=== PATIENT | female | born 1935 | race Caucasian/White ===

== ENCOUNTER 2018-06-08 12:59 | Inpatient (IN) | payer MEDICARE, BC ==
[2018-06-08] MEDS ORDERED: Albuterol/Ipratropium NEB.SOL* Albuterol 2.5 MG/Ipratropium 0.5 MG 3 ML INH ONE (13:20)
--- NOTE | 2018-06-08 13:41 | ED ---
Shortness of Breath - HPI Summary HPI Summary: This is amita Pinedo documenting for attending Jac Medina MD. This patient is an 82 year old F presenting to [facility] accompanied by her son with a chief complaint of SOB since this morning. Pt initially saw her doctor in [place] for URI Sx where he discovered she was very anemic and told her to go to the ER. Symptoms aggravated by ambulating. Patient reports weakness, general malaise, cough, sore throat, SOB, increased urinary frequency, rhinorrhea, and wheezing. Patient denies diarrhea, bloody stool, abd pain, edema in the LEs, or melena. PMHx COPD, HLD, frequent urination. SHx tobacco use. Pt states that she does not have her own inhaler. Pt has not been passing stool more than usual. - History of Current Complaint Chief Complaint: EDShortnessOfBreath Time Seen by Provider: 06/08/18 13:09 Hx Obtained From: Patient, Family/Telecine Operator - son Onset/Duration: Sudden Onset, Lasting Hours - this morning Current Severity: Moderate Associated Signs & Symptoms: Cough (Productive), Wheezing, Nasal Congestion - Allergy/Home Medications Allergies/Adverse Reactions: Allergies Allergy/AdvReac Type Severity Reaction Status Date / Time No Known Allergies Allergy Verified 06/08/18 13:05 Home Medications: Home Medications Aspirin EC TAB* [Ecotrin EC TAB*] 81 mg PO DAILY 06/08/18 [History Confirmed ] Atenolol TAB* [Tenormin TAB* 50 MG] 50 mg PO DAILY 06/08/18 [History Confirmed 06/08/18] Calcium Carbonate [Calcium] 500 mg PO DAILY 06/08/18 [History Confirmed 06/08/18 ] Cholecalciferol TAB* [Vitamin D TAB*] 2,000 units PO DAILY 06/08/18 [History Confirmed 06/08/18] DULoxetine DR CAP* [Cymbalta CAP*] 30 mg PO DAILY 06/08/18 [History Confirmed ] Dronabinol CAP* [Marinol CAP*] 5 mg PO BID 06/08/18 [History Confirmed 06/08/18] Hydrochlorothiazide TAB* [Hydrodiuril TAB*] 25 mg PO DAILY 06/08/18 [History Confirmed 06/08/18] Lisinopril TAB* [Prinivil TAB*] 40 mg PO DAILY 06/08/18 [History Confirmed 06/08] Magnesium Oxide TAB* [MagOx 400 TAB*] 400 mg PO BID 06/08/18 [History Confirmed 06/08/18] Multivitamins/Minerals TAB* [Theragran/minerals TAB*] 1 tab PO DAILY 06/08/18 [ History Confirmed 06/08/18] Naproxen Sodium [Aleve] 220 mg PO BID 06/08/18 [History Confirmed 06/08/18] Simvastatin (NF) [Zocor (NF)] 40 mg PO DAILY 06/08/18 [History Confirmed ] amLODIPine TAB* [Norvasc 5 mg TAB*] 5 mg PO DAILY 06/08/18 [History Confirmed ] PMH/Surg Hx/FS Hx/Imm Hx Cardiovascular History: Reports: Hx Hypertension - ON MEDICATION FOR, Hx Rheumatic Fever - A CHILD Respiratory History: Reports: Hx Chronic Obstructive Pulmonary Disease (COPD) Musculoskeletal History: Reports: Hx Arthritis Denies: Hx Osteoporosis Sensory History: Reports: Hx Contacts or Glasses - GLASSES Denies: Hx Hearing Aid Opthamlomology History: Reports: Hx Contacts or Glasses - GLASSES Psychiatric History: Reports: Hx Depression - ON MEDICATION FOR - Surgical History Surgery Procedure, Year, and Place: TONSILLECTOMY-AGE10. TUBAL LIGATION-1966. RIGHT CARPAL TUNNEL RELEASE- ~40 YEARS AGO. RIGHT SHOULDER AND RIGHT THUMB- ~ 25 YEARS AGO. TEETH EXTRACTION Hx Anesthesia Reactions: No Infectious Disease History: No Infectious Disease History: Denies: Traveled Outside the [place] in Last 30 Days - Family History Known Family History: Positive: Other - COPD - Social History Alcohol Use: Rare Substance Use Type: Reports: None Smoking Status (MU): Former Smoker Amount Used/How Often: 1 PPD X 60 YEARS Have You Smoked in the Last Year: No Review of Systems Negative: Fever Positive: Sore Throat, Nasal Discharge Positive: Shortness Of Breath, Cough, Other - wheezing Negative: Abdominal Pain, Diarrhea Positive: frequency. Negative: dysuria, hematuria Negative: Edema Positive: Weakness All Other Systems Reviewed And Are Negative: Yes Physical Exam - Summary Physical Exam Summary: General: No pain distress Skin: warm, pale, dry Head: normal Eyes: EOMI, JADEN ENT: normal Neck: supple, nontender Respiratory: CTA, breath sounds present. Rhonchi. Cough. Cardiovascular: RRR Abdomen: soft, nontender Bowel: stool sample obtained and is brown in color Musculoskeletal: normal, strength/ROM intact Neurological: sensory/motor intact, A&O x3 Psychological: affect/mood appropriate Triage Information Reviewed: Yes Vital Signs On Initial Exam: Initial Vitals Temp Pulse Resp BP Pulse Ox 97.5 F 74 24 122/57 97 06/08/18 13:03 06/08/18 13:03 06/08/18 13:03 06/08/18 13:03 06/08/18 13:03 Vital Signs Reviewed: Yes Diagnostics - Vital Signs Vital Signs Temp Pulse Resp BP Pulse Ox 06/08/18 13:03 97.5 F 74 24 122/57 97 - Laboratory Result Diagrams: 06/08/18 13:32 06/08/18 13:32 Lab Statement: Any lab studies that have been ordered have been reviewed, and results considered in the medical decision making process. - Radiology CXR Radiology Interpretation Completed By: Radiologist - Stigmata of obstructive lung disease. No acute pulmonary or cardiac process evident. ER Physician reviewed this report. - EKG 13:27 Cardiac Rate: NL - 74 bpm EKG Rhythm: Sinus Rhythm ST Segment: Normal Ectopy: None Course/Dx - Course Course Of Treatment: ADMIT HOSPITALIST - Diagnoses Provider Diagnoses: COPD exacerbation, Bronchitis, Hyponatremia - Physician Notifications Discussed Care of Patient With: Mando Toussaint - Discussed D Dimer, will look at CTA Time Discussed With Above Provider: 14:33 Instructed by Provider To: Admit As Inpatient Discharge - Sign-Out/Discharge Documenting (check all that apply): Patient Departure - Discharge Plan Condition: Stable Disposition: ADMITTED TO [facility] - Billing Disposition and Condition Condition: STABLE Disposition: Admitted to [facility]
[2018-06-08 13:42] LABS: Hematocrit 25 % (35-47); Hematocrit for Retic CNT 25 % (35-47); Hemoglobin 8.5 g/dl (12.0-16.0); Immature Retic Fraction 0.43; Mean Corpuscular HGB Conc 34 g/dl (31-36); Mean Corpuscular Hemoglobin 29 pg (27-31); Mean Corpuscular Volume 86 fL (80-97); Mean Platelet Volume 6.8 um3 (7.4-10.4); Platelet Count 422 10^3/ul (150-450); RBC Retic Count 2.91 10^6/ul (4.6-6.2); Red Blood Count 2.91 10^6/ul (4.00-5.40); Red Cell Distribution Width 14 % (10.5-15)
[2018-06-08 13:52] LABS: INR 1.09 (0.77-1.02)
[2018-06-08 14:00] LABS: EGFR Non-African American 34.8 (>60)
[2018-06-08] MEDS ORDERED: Azithromycin IV(*) 500 MG in NS 0.9% 250 ML* 250 ML IVPB ONE (14:21)
[2018-06-08] MEDS ORDERED: cefTRIAXone(*) 1 GM in NS 0.9% 50 ML* 50 ML IVPB ONE (14:21)
[2018-06-08] MEDS ORDERED: NS 0.9% 1000 ML* 3,000 ML IV ONE (14:22)
[2018-06-08 14:24] LABS: ABS Basophils 0 10^3/ul (0-0.2); ABS Eosinophils 0.1 10^3/ul (0-0.6); ABS Lymphocytes 0.7 10^3/ul (1.0-4.8); ABS Monocytes 1.9 10^3/ul (0-0.8); ABS Neutrophils 15.2 10^3/ul (1.5-7.7); ABS Nucleated RBC 0 10^3/ul; Eosinophil % 0.6 % (0-6); Lymphocyte % 4.2 % (25-47); Nucleated Red Blood Cells % 0
--- NOTE | 2018-06-08 14:49 | RAD ---
Indication: Cough and shortness of breath. Worse on exertion. History of COPD. Comparison: March 25, 2018 thoracic spine radiographs. Technique: Upright AP 1400 hours Report: Costochondral calcifications noted. Mild prominence of interstitial markings without change. No focal pulmonary lesion, compelling alveolar consolidation, pleural effusion, pneumothorax. Top normal heart size. Unremarkable central pulmonary vasculature. IMPRESSION: #. Stigmata of obstructive lung disease. No acute pulmonary or cardiac process evident.
[2018-06-08] MEDS ORDERED: Magnesium Sulfate 2 GM IV* 2 GM/50 ML BAG IVPB ONE (16:19)
[2018-06-08] MEDS ORDERED: Albuterol 2.5 MG/3 ML NEB.SOL* (0.083%) INH PRN (16:20)
[2018-06-08] MEDS ORDERED: Acetaminophen TAB* 325 MG PO PRN (16:20)
[2018-06-08] MEDS ORDERED: Ondansetron INJ* 2 MG/ML VIAL IV PRN (16:20)
[2018-06-08] MEDS ORDERED: Al Hydrox/Mg Hydrox/Simet LIQ* 30 ML UDC PO PRN (16:20)
[2018-06-08] MEDS ORDERED: Iodixanol* (CONTRAST) 320 MG/ML 100 ML SDV IV ONE (16:36)
[2018-06-08] MEDS ORDERED: Magnesium Sulfate IV 2 GM in NS 100 ML (Pharmacy Admixed) IV ONE (17:30)
--- NOTE | 2018-06-08 17:47 | RAD ---
INDICATION: Chest pain. Short of breath. Evaluate for pulmonary embolus. COMPARISON: Chest x-ray June 08, 2018 TECHNIQUE: Axial source images were obtained from the thoracic inlet to the hemidiaphragms following administration of [address] angiographic technique was utilized. Coronal and sagittal reconstructed images were acquired. CHEST FINDINGS: Neck/thyroid: The visualized neck to include the thyroid appear normal. Chest wall: There are no acute abnormalities of the bony thorax or chest wall. There is no supraclavicular, infraclavicular, or axillary lymphadenopathy. Lungs : There are no pulmonary parenchymal masses or infiltrates. There is peribronchial thickening in the lung bases with mild hypoventilation. There is mild coarsening of the pulmonary interstitium consistent with mild chronic change . Cardiomediastinal structures: There is no CT evidence of acute pulmonary embolic disease. The heart is normal in size. There is no pericardial effusion. There is no evidence of aortic aneurysm or dissection. There are mildly prominent hilar lymph nodes bilaterally. These measure up to 1.5 cm. There are confluent lymph nodes and subcarinal region which individually measure up to 1.5 cm The esophagus appears normal. Pleura : There are no pleural-based masses or effusions. Other: There is a small hiatal hernia. IMPRESSION: NO CT OF HIS OF ACUTE PULMONARY EMBOLIC DISEASE. MILD MEDIASTINAL ADENOPATHY. PERIBRONCHIAL THICKENING IN THE LUNG BASES
--- NOTE | 2018-06-08 18:41 | HP ---
CC: Dr. Hartmann * HISTORY AND PHYSICAL: DATE OF ADMISSION: 06/08/18 PROVIDER: Tasha Hinds NP PRIMARY CARE PROVIDER: Dr. Hartmann. ATTENDING PHYSICIAN WHILE IN THE HOSPITAL: Dr. Mando Toussaint * (dictated by Tasha Hinds NP). CHIEF COMPLAINT: 1. Shortness of breath. 2. Cough. 3. Sore throat. HISTORY OF PRESENT ILLNESS: Ms. Mcbride is an 82-year-old female patient with a past medical history significant for hypertension, hyperlipidemia, and COPD, who presents to the emergency room today with increased shortness of breath and sore throat, chills and low-grade fever this a.m. The patient reports that she woke up this morning with a sore throat and a progressively worsening cough x1 day. She reports that her cough is productive with clear light yellow secretions. She does report fever. She does report decreased appetite x2 days. She denies any chest pain or edema. She does report cough that has progressively worsened over the past 2 days. She denies any hemoptysis. She does report some shortness of breath. Denies any nausea or vomiting. She does report chronic intermittent diarrhea. Denies any abdominal pain. She does report dark brown stools. She denies any gross hematuria. She does report some mild pain with urination. She denies any focal weakness or sensory loss. Eyes: Denies any visual complaints. Denies any dysphagia. Denies any arthralgias or myalgias. Denies any rashes or lesions. She denies any depression or anxiety. Due to her increased cough and shortness of breath, the patient was brought to the emergency room for further evaluation. While in the emergency room, the patient was found to be anemic. Her H and H is 8.5 and 25, which is lower than her normal. Due to her leukocytosis, anemia , shortness of breath, cough and elevated D-dimer, we were asked to evaluate her for admission. PAST MEDICAL HISTORY: 1. Hypertension. 2. Hyperlipidemia. 3. COPD. PAST SURGICAL HISTORY: 1. Right carpal tunnel. 2. Right shoulder. 3. Right thumb 4. Tubal ligation. 5. Tonsillectomy. 6. Tooth extraction. MEDICATIONS: Home medications include: 1. Vitamin D. 2. Calcium. 3. Aleve. 4. Multivitamin. 5. Zocor 40 mg p.o. daily. 6. Magnesium oxide 400 mg p.o. daily. 7. Atenolol 50 mg p.o. daily. 8. Norvasc 5 mg p.o. daily. 9. Hydrochlorothiazide 25 mg p.o. daily. 10. Cymbalta 30 mg p.o. daily. 11. Aspirin 81 mg p.o. daily. 12. Lisinopril 40 mg p.o. daily. 13. Marinol cap 5 mg b.i.d. ALLERGIES: No known drug allergies. FAMILY HISTORY: No reported history of coronary artery disease, diabetes, or cancer within the family. SOCIAL HISTORY: The patient does smoke 2 cigars daily. She does report rare alcohol use and does use medical marijuana. She is retired. She lives with her daughter. Surrogate decision maker in the event she is unable to make her own decisions is her daughter, Elle Morataya. Her phone number is [phone]. She is a full code. REVIEW OF SYSTEMS: There was no documented fever. She does report decreased appetite x2 days. She denies any chest pain. Denies any edema. Denies any hemoptysis. She does report a cough that is productive with clear pale yellow secretions. She does report some shortness of breath. She denies any nausea or vomiting. She does report chronic diarrhea. She denies any black or tarry stools. She denies any melena. She does report suprapubic abdominal pain with palpation. She denies any gross hematuria. She does report mild pain with urination. She denies focal weakness or sensory loss. Denies any visual complaints. Denies any dysphagia. Denies any arthralgias or myalgias. Denies any rashes or lesions. She denies any psychosis or anxiety. PHYSICAL EXAMINATION GENERAL: At this time, Ms. Mcbride is an 82-year-old female. She appears nourished. She is sitting on the stretcher in the emergency room. She is pale. She does not have a harsh cough. VITAL SIGNS: Blood pressure 128/48, heart rate is 82, O2 saturation 92% on room air, temperature was 97.5. HEENT: Head is atraumatic, normocephalic. Eyes: EOMs are intact. Sclerae are anicteric. Conjunctivae are pale. Oral mucosa appears to be moist. There is mild oropharyngeal erythema. NECK: Supple. No cervical or submandibular adenopathy. LUNGS: With crackles in the bases bilaterally. There are no wheezes or rales. CARDIAC: S1, S2. Regular rate and rhythm. There are no murmurs, rubs, or gallops. ABDOMEN: Soft, obese, with suprapubic tenderness to palpation. Bowel sounds are present x4. EXTREMITIES: Pulses are +2 bilaterally. She is able to move all 4 extremities with 5/5 strength. NEUROLOGIC: She is awake, alert, and oriented x3. Tongue is midline. Speech is clear. There are no gross focal deficits. SKIN: Intact. DIAGNOSTIC STUDIES/LAB DATA: WBCs are 18.0, RBCs 2.91, hemoglobin 8.5, hematocrit was 25, platelet count 422. RBC retic count was 2.91, neutrophils were 84.3, lymphs were 4.2, monos 10.7, retic count calculated was 1.8, corrected retic count was 1.0, retic shift factor was 2.0, retic production index was 0.50, immature retic fraction was 0.43, mean retic volume was 99.3. INR was 1.0, APTT was 30.9. D-dimer was 1039. Sodium 124, potassium 4.8, chloride 87, carbon dioxide was 27, anion gap was 10, BUN was 24, creatinine 1.44, glucose was 132, lactic acid 1.4, calcium 9.4, magnesium was 1.8. Ferritin 155.9. ASTs were 18, ALTs were 14, alk phos was 92. CK was 2.1, troponin 0.01. C-reactive protein 197.90. BNP was 70. Albumin 3.4, globulin was 3.4, lipase was less than 10. Vitamin B12 was 888. TSH was 0.95. She did have a stool for occult that was negative for blood. She also does have a urinalysis that is currently pending. She had a chest x-ray. Radiologist's impression: Stigmata of obstructive lung disease. No acute pulmonary or cardiac process was evident. She had an electrocardiogram, which showed a sinus rhythm at a rate of 74. No ST changes. She does have a CT of the chest that is pending. ASSESSMENT AND PLAN: Ms. Mcbride is an 82-year-old female that presented to the emergency room with a complaint of shortness of breath, cough, and sore throat. We were asked to see and evaluate her due to her leukocytosis, shortness of breath, cough. She will be admitted under observation for: 1. Shortness of breath. I suspect that this is related to chronic obstructive pulmonary disease exacerbation/bronchitis. I will place her on azithromycin and ceftriaxone as the patient did have mild elevation in temperature at home today of 100.3. She does have an 18,000 white count and is meeting SIRS criteria with respiratory rate of 25, white count of 18,000. She does have 3000 cc of normal saline ordered for hydration in the emergency room. She did receive azithromycin and ceftriaxone in the emergency room. We will continue these antibiotics with her admission. I will continue albuterol nebulizers as needed for her shortness of breath and wheezing q.4 hours. I did on a procalcitonin level that is currently pending. The patient does have a productive cough with pale yellow sputum. I will send the sputum for culture. I will also add a urine for Legionella and S pneumoniae. She did have blood cultures done. 2. Leukocytosis. She does have an 18,000 white count. I suspect this could be related to her urinary tract infection as she does have suprapubic tenderness with palpation and mild pain with urination. She did have mild elevation in her temperature this morning of 100.3 at home. This also could be related to underlying pneumonia. We will treat her with ceftriaxone, which will cover urinary tract infection and azithromycin, which will cover any underlying pneumonia. I will continue to trend her CBC daily. We will repeat this in the a.m. 3. Anemia. We will continue to trend a CBC on her. She did have ferritin level drawn in the emergency room. I will add iron studies. She did have an occult stool in the emergency room, which was negative. 4. Elevated creatinine. I suspect that she has an elevated creatinine related to dehydration. We will give her hydration and repeat a BMP in the a.m. and continue to monitor her creatinine level. 5. Hyponatremia. I suspect again this is related probably to malnutrition as the patient has had decreased appetite and decreased p.o. intake at home. We will give her IV hydration and repeat a BMP in the a.m. for further evaluation of her hyponatremia. 6. Hypertension. She should continue on her Norvasc, atenolol, lisinopril, and hydrochlorothiazide as previously ordered at home. 7. Hyperlipidemia. She should continue on her Zocor 40 mg p.o. daily. 8. Elevated D-dimer. I will obtain a CTA of the chest to rule out pulmonary embolism as she does have a D-dimer of 1039. The patient denies any palpitations. She does report some shortness of breath. 9. Code status: She is a full code. 10. DVT prophylaxis: I will place her on heparin subcu and SCDs. 11. Disposition: She will be placed under observation. TIME SPENT: Time spent on this admission was approximately 60 minutes, greater than half of that time was spent with the patient obtaining my history and physical, the other half of the time was spent going over my plan of care and implementing my plan of care. I have discussed this with my attending, Dr. Mando Toussaint, and he is in agreement with my plan. TASHA HINDS, SKIP HOIST ENGINEER [id number]/[facility] #: [id number] JEANNA
[2018-06-08 18:43] LABS: Urine Appearance Cloudy; Urine Blood 2+ (Negative); Urine Color Yellow; Urine Ketones Negative (Negative); Urine Protein 1+(30 mg/dL) (Negative); Urine Red Blood Cell 2+(6-10/hpf) (Absent); Urine Urobilinogen Negative (Negative); Urine White Blood Cell 3+(>20/hpf) (Absent)
[2018-06-08] MEDS: Dronabinol CAP* 2.5 MG PO SCH (20:31)
[2018-06-08] MEDS: Heparin VIAL(*) 5000 UNITS/ML VIAL (FIVE THOUSAND) SUBCUT SCH (20:31)
[2018-06-08] MEDS: Magnesium Oxide TAB* 400 MG PO SCH (20:31)
[2018-06-08] MEDS: Benzonatate CAP* 100 MG PO PRN (21:49)
[2018-06-09] MEDS: guaiFENesin ER TAB 600 MG PO PRN (05:52)
[2018-06-09] MEDS: Heparin VIAL(*) 5000 UNITS/ML VIAL (FIVE THOUSAND) SUBCUT SCH ×3 (05:52→21:37)
[2018-06-09 06:10] LABS: ABS Basophils 0.1 10^3/ul (0-0.2); ABS Eosinophils 0.1 10^3/ul (0-0.6); ABS Lymphocytes 0.9 10^3/ul (1.0-4.8); ABS Monocytes 1.3 10^3/ul (0-0.8); ABS Neutrophils 11.6 10^3/ul (1.5-7.7); ABS Nucleated RBC 0 10^3/ul; Eosinophil % 0.9 % (0-6); Hematocrit 25 % (35-47); Hemoglobin 8.5 g/dl (12.0-16.0); Lymphocyte % 6.7 % (25-47); Mean Corpuscular HGB Conc 34 g/dl (31-36); Mean Corpuscular Hemoglobin 30 pg (27-31); Mean Corpuscular Volume 87 fL (80-97); Nucleated Red Blood Cells % 0; Platelet Count 397 10^3/ul (150-450); Red Blood Count 2.83 10^6/ul (4.00-5.40); Red Cell Distribution Width 14 % (10.5-15)
[2018-06-09 06:26] LABS: EGFR Non-African American 40.9 (>60)
[2018-06-09] MEDS: Atorvastatin* 20 MG TAB PO SCH (09:00)
[2018-06-09] MEDS: Atenolol TAB* 50 MG PO SCH (09:00)
[2018-06-09] MEDS: Cholecalciferol TAB* 1000 UNITS PO SCH (09:01)
[2018-06-09] MEDS: Magnesium Oxide TAB* 400 MG PO SCH ×2 (09:01→21:36)
[2018-06-09] MEDS: Hydrochlorothiazide TAB* 25 MG PO SCH (09:01)
[2018-06-09] MEDS: Lisinopril TAB* 10 MG PO SCH (09:01)
[2018-06-09] MEDS: Benzonatate CAP* 100 MG PO PRN (09:01)
[2018-06-09] MEDS: Calcium Carbonate TAB* 1250 MG (CALCIUM 500 MG) PO SCH (09:02)
[2018-06-09] MEDS: Dronabinol CAP* 2.5 MG PO SCH ×2 (09:02→21:36)
[2018-06-09] MEDS: DULoxetine DR CAP* 30 MG CAP.DR PO SCH (09:02)
[2018-06-09] MEDS: amLODIPine TAB* 5 MG PO SCH (09:02)
[2018-06-09] MEDS: Multivitamins/Minerals TAB PO SCH (09:02)
[2018-06-09] MEDS ORDERED: Albuterol/Ipratropium NEB.SOL* Albuterol 2.5 MG/Ipratropium 0.5 MG 3 ML INH PRN (10:35)
[2018-06-09] MEDS: methylPREDNISolone SOD 40 MG* 1 ML VIAL IV SCH (11:57)
[2018-06-09] MEDS: cefTRIAXone(*) 1 GM in NS 0.9% 50 ML* 50 ML IVPB SCH (14:11)
--- NOTE | 2018-06-09 14:33 | PN ---
Subjective Date of Service: 06/09/18 Interval History: Feels "awful" today. She complains of ongoing shortness of breath and productive cough. No fevers, no chest pain. She had not yet been out of bed when I saw her this morning. But she says she becomes more short of breath even with slight exertion in her bed. At home she is able to walk around her house with a walker. No sore throat, rhinorrhea, chest pain, nausea, headache. Family History: Unchanged from Admission Social History: Unchanged from Admission Past Medical History: Unchanged from Admission Objective Active Medications: Acetaminophen (Tylenol Tab*) 650 mg PO Q4H PRN PRN Reason: FEVER/PAIN Last Admin: 06/08/18 20:47 Dose: 650 mg Al Hydrox/Mg Hydrox/Simethicone (Maalox Plus*) 30 ml PO Q6H PRN PRN Reason: INDIGESTION Albuterol/Ipratropium (Duoneb (Albuterol 2.5 Mg/Ipratropium 0.5 Mg)) 1 neb INH Q4H PRN PRN Reason: SOB/WHEEZING Amlodipine Besylate (Norvasc Tab*) 5 mg PO DAILY [facility] Last Admin: 06/09/18 09:02 Dose: 5 mg Atenolol (Tenormin Tab*) 50 mg PO DAILY [facility] Last Admin: 06/09/18 09:00 Dose: 50 mg Atorvastatin Calcium (Lipitor*) 20 mg PO DAILY [facility] Last Admin: 06/09/18 09:00 Dose: 20 mg Benzonatate (Tessalon Cap*) 100 mg PO BID PRN PRN Reason: COUGH Last Admin: 06/09/18 09:01 Dose: 100 mg Calcium Carbonate (Calcium Carbonate Tab*) 1,250 mg PO DAILY [facility] Last Admin: 06/09/18 09:02 Dose: 1,250 mg Cholecalciferol (Vitamin D Tab*) 2,000 units PO DAILY [facility] Last Admin: 06/09/18 09:01 Dose: 2,000 units Dronabinol (Marinol Cap*) 5 mg PO BID [facility] Last Admin: 06/09/18 09:02 Dose: 5 mg Duloxetine HCl (Cymbalta Cap*) 30 mg PO DAILY [facility] Last Admin: 06/09/18 09:02 Dose: 30 mg Guaifenesin (Mucinex*) 600 mg PO BID PRN PRN Reason: COUGH Last Admin: 06/09/18 05:52 Dose: 600 mg Heparin Sodium (Porcine) (Heparin Vial(*)) 5,000 units SUBCUT Q8HR [facility] Last Admin: 06/09/18 14:11 Dose: 5,000 units Hydrochlorothiazide (Hydrodiuril Tab*) 25 mg PO DAILY [facility] Last Admin: 06/09/18 09:01 Dose: 25 mg Ceftriaxone Sodium 1 gm/ (Sodium Chloride) 50 mls @ 200 mls/hr IVPB Q24H [facility] Last Admin: 06/09/18 14:11 Dose: 200 mls/hr Azithromycin 500 mg/ Sodium (Chloride) 250 mls @ 250 mls/hr IVPB Q24H [facility] Lisinopril (Prinivil Tab*) 40 mg PO DAILY [facility] Last Admin: 06/09/18 09:01 Dose: 40 mg Magnesium Oxide (Magox 400 Tab*) 400 mg PO BID [facility] Last Admin: 06/09/18 09:01 Dose: 400 mg Methylprednisolone Sodium Succinate (Solu-Medrol 40 Mg) 40 mg IV Q12H [facility] Last Admin: 06/09/18 11:57 Dose: 40 mg Multivitamins/Minerals (Theragran/Minerals Tab*) 1 tab PO DAILY [facility] Last Admin: 06/09/18 09:02 Dose: 1 tab Nystatin (Nystatin Top Powder*) 1 applic TOPICAL BID [facility] Ondansetron HCl (Zofran Inj*) 4 mg IV Q4H PRN PRN Reason: NAUSEA/VOMITING Vital Signs - 8 hr 06/09/18 06/09/18 06/09/18 07:42 07:53 09:02 Temperature 98.0 F Pulse Rate 81 Respiratory 17 17 22 Rate Blood Pressure 141/40 (mmHg) O2 Sat by Pulse 97 Oximetry 06/09/18 06/09/18 11:14 12:01 Temperature 99.1 F Pulse Rate 78 Respiratory 16 24 Rate Blood Pressure 141/44 (mmHg) O2 Sat by Pulse 99 Oximetry Oxygen Devices in Use Now: Nasal Cannula Appearance: alert, sitting in bed, able to speak in full sentences until I ask her to sit up to listen to her lungs, at which point she becomes dyspneic Eyes: No Scleral Icterus Ears/Nose/Mouth/Throat: NL Teeth, Lips, Gums Neck: NL Appearance and Movements; NL JVP Respiratory: Symmetrical Chest Expansion and Respiratory Effort, - - decreased breath sounds, prolonged expiratory phase Cardiovascular: RRR, No Edema Abdominal: NL Sounds; No Tenderness; No Distention Lymphatic: No Cervical Adenopathy Extremities: No Edema, - - + CLUBBING Skin: No Rash or Ulcers Neurological: Alert and Oriented x 3 Result Diagrams: 06/09/18 05:27 06/09/18 05:27 Microbiology and Other Data: Microbiology 06/08/18 20:50 Gram Stain - Final Sputum Expectorated 06/08/18 18:20 Legionella Urinary Antigen - Final Urine Negative Legionella Antigen Streptococcus pneumoniae Ag Screen - Final Negative S. pneumo Antigen 06/08/18 14:51 Stool Occult Blood ([facility]) - Final Stool Assess/Plan/Problems-Billing Assessment: 82 yo female with history of suspected chronic bronchitis (has never had PFTs) admitted yesterday with shortness of breath and productive cough, thought to be in copd exacerbation. - Patient Problems (1) COPD exacerbation Current Visit: Yes Status: Acute Code(s): J44.1 - CHRONIC OBSTRUCTIVE PULMONARY DISEASE W (ACUTE) EXACERBATION SNOMED Code(s): 436769223 Comment: Likely related to a URI versus ongoing tobacco exposure CTA negative for PE or pneumonia or edema While she does not believe she has been formally diagnosed with COPD, she does report a chronic ongoing productive cough, and at this time both the cough and the sputum are increased from baseline I am starting solumedrol and adding duoneb to her regimen today I agree with treating empirically for bronchitis or pneumonia with ceftriaxone and the addition of azithromycin for atypical coverage check ambulatory pulse ox today needs to quit smoking follow up sputum culture (2) Leukocytosis Current Visit: Yes Status: Acute Code(s): D72.829 - ELEVATED WHITE BLOOD CELL COUNT, UNSPECIFIED SNOMED Code(s): 649398354 Comment: I suspect an occult pneumonia vs. bronchitis; abx as above Improving on this regimen (3) UTI (urinary tract infection) Current Visit: Yes Status: Acute Comment: continue ceftriaxone; culture pending (4) Hyponatremia Current Visit: Yes Status: Acute Code(s): E87.1 - HYPO-OSMOLALITY AND HYPONATREMIA SNOMED Code(s): 69385010 Comment: improving likely related to respiratory distress; daughter also cites poor diet that contains more snacks and junk food than nutritious meals (5) EUGENE (acute kidney injury) Current Visit: Yes Status: Acute Code(s): N17.9 - ACUTE KIDNEY FAILURE, UNSPECIFIED SNOMED Code(s): 61235024 Comment: improved after 2L IVF dc IVF (6) Ambulatory dysfunction Current Visit: Yes Status: Acute Code(s): R26.2 - DIFFICULTY IN WALKING, NOT ELSEWHERE CLASSIFIED SNOMED Code(s): 402921718 Comment: while Ms. Mcbride is confident in her ability to ambulate at home, her daughter, who lives with her, expresses exasperation with her mom's deconditioning. appreciate PT input and would suggest STR if PT recommends (7) Iron deficiency anemia Current Visit: Yes Status: Acute Code(s): D50.9 - IRON DEFICIENCY ANEMIA, UNSPECIFIED SNOMED Code(s): 98081839 Comment: Hgb is 8.5 from 12 four months ago FOBT is negative, however this may warrant c-scope or endoscopy but respiratory status needs improvement first start po iron, trend h&h no active bleeding
[2018-06-09] MEDS: Azithromycin IV(*) 500 MG in NS 0.9% 250 ML* 250 ML IVPB SCH (16:37)
[2018-06-09] MEDS: Nystatin TOP POWDER* 15 GM BTL TOPICAL SCH ×2 (16:40→21:59)
[2018-06-10] MEDS: methylPREDNISolone SOD 40 MG* 1 ML VIAL IV SCH ×2 (00:38→11:36)
[2018-06-10] MEDS: Heparin VIAL(*) 5000 UNITS/ML VIAL (FIVE THOUSAND) SUBCUT SCH ×3 (05:54→21:23)
[2018-06-10 07:17] LABS: Hematocrit 25 % (35-47); Hemoglobin 8.7 g/dl (12.0-16.0); Mean Corpuscular HGB Conc 34 g/dl (31-36); Mean Corpuscular Hemoglobin 30 pg (27-31); Mean Corpuscular Volume 87 fL (80-97); Platelet Count 428 10^3/ul (150-450); Red Blood Count 2.92 10^6/ul (4.00-5.40); Red Cell Distribution Width 14 % (10.5-15); White Blood Count 14.8 10^3/ul (3.5-10.8)
[2018-06-10] MEDS: Multivitamins/Minerals TAB PO SCH (08:54)
[2018-06-10] MEDS: Atorvastatin* 20 MG TAB PO SCH (08:54)
[2018-06-10] MEDS: amLODIPine TAB* 5 MG PO SCH (08:54)
[2018-06-10] MEDS: Lisinopril TAB* 10 MG PO SCH (08:55)
[2018-06-10] MEDS: Calcium Carbonate TAB* 1250 MG (CALCIUM 500 MG) PO SCH (08:55)
[2018-06-10] MEDS: DULoxetine DR CAP* 30 MG CAP.DR PO SCH (08:55)
[2018-06-10] MEDS: Dronabinol CAP* 2.5 MG PO SCH ×2 (08:55→21:22)
[2018-06-10] MEDS: Magnesium Oxide TAB* 400 MG PO SCH ×2 (08:55→21:22)
[2018-06-10] MEDS: Atenolol TAB* 50 MG PO SCH (08:55)
[2018-06-10] MEDS: Hydrochlorothiazide TAB* 25 MG PO SCH (08:55)
[2018-06-10] MEDS: Nystatin TOP POWDER* 15 GM BTL TOPICAL SCH ×2 (08:57→21:23)
[2018-06-10] MEDS: Cholecalciferol TAB* 1000 UNITS PO SCH (08:59)
--- NOTE | 2018-06-10 14:49 | PN ---
Subjective Date of Service: 06/10/18 Interval History: No overnight events. Feels "okay" today but still has a productive cough and scratchy throat and hoarseness. Worked with PT and walked a little further today. Her son is visiting from [place]. Family History: Unchanged from Admission Social History: Unchanged from Admission Past Medical History: Unchanged from Admission Objective Active Medications: Acetaminophen (Tylenol Tab*) 650 mg PO Q4H PRN PRN Reason: FEVER/PAIN Last Admin: 06/08/18 20:47 Dose: 650 mg Al Hydrox/Mg Hydrox/Simethicone (Maalox Plus*) 30 ml PO Q6H PRN PRN Reason: INDIGESTION Albuterol/Ipratropium (Duoneb (Albuterol 2.5 Mg/Ipratropium 0.5 Mg)) 1 neb INH Q4H PRN PRN Reason: SOB/WHEEZING Amlodipine Besylate (Norvasc Tab*) 5 mg PO DAILY [facility] Last Admin: 06/10/18 08:54 Dose: 5 mg Atenolol (Tenormin Tab*) 50 mg PO DAILY [facility] Last Admin: 06/10/18 08:55 Dose: 50 mg Atorvastatin Calcium (Lipitor*) 20 mg PO DAILY [facility] Last Admin: 06/10/18 08:54 Dose: 20 mg Benzonatate (Tessalon Cap*) 100 mg PO BID PRN PRN Reason: COUGH Last Admin: 06/09/18 09:01 Dose: 100 mg Calcium Carbonate (Calcium Carbonate Tab*) 1,250 mg PO DAILY [facility] Last Admin: 06/10/18 08:55 Dose: 1,250 mg Cholecalciferol (Vitamin D Tab*) 2,000 units PO DAILY [facility] Last Admin: 06/10/18 08:59 Dose: 2,000 units Dronabinol (Marinol Cap*) 5 mg PO BID [facility] Last Admin: 06/10/18 08:55 Dose: 5 mg Duloxetine HCl (Cymbalta Cap*) 30 mg PO DAILY [facility] Last Admin: 06/10/18 08:55 Dose: 30 mg Guaifenesin (Mucinex*) 600 mg PO BID PRN PRN Reason: COUGH Last Admin: 06/09/18 05:52 Dose: 600 mg Heparin Sodium (Porcine) (Heparin Vial(*)) 5,000 units SUBCUT Q8HR [facility] Last Admin: 06/10/18 05:54 Dose: 5,000 units Hydrochlorothiazide (Hydrodiuril Tab*) 25 mg PO DAILY [facility] Last Admin: 06/10/18 08:55 Dose: 25 mg Ceftriaxone Sodium 1 gm/ (Sodium Chloride) 50 mls @ 200 mls/hr IVPB Q24H [facility] Last Admin: 06/09/18 14:11 Dose: 200 mls/hr Azithromycin 500 mg/ Sodium (Chloride) 250 mls @ 250 mls/hr IVPB Q24H [facility] Last Admin: 06/09/18 16:37 Dose: 250 mls/hr Lisinopril (Prinivil Tab*) 40 mg PO DAILY [facility] Last Admin: 06/10/18 08:55 Dose: 40 mg Magnesium Oxide (Magox 400 Tab*) 400 mg PO BID [facility] Last Admin: 06/10/18 08:55 Dose: 400 mg Methylprednisolone Sodium Succinate (Solu-Medrol 40 Mg) 40 mg IV Q12H [facility] Last Admin: 06/10/18 11:36 Dose: 40 mg Multivitamins/Minerals (Theragran/Minerals Tab*) 1 tab PO DAILY [facility] Last Admin: 06/10/18 08:54 Dose: 1 tab Nystatin (Nystatin Top Powder*) 1 applic TOPICAL BID [facility] Last Admin: 06/10/18 08:57 Dose: 1 applic Ondansetron HCl (Zofran Inj*) 4 mg IV Q4H PRN PRN Reason: NAUSEA/VOMITING Vital Signs - 8 hr 06/10/18 06/10/18 06/10/18 07:49 08:00 08:55 Temperature 98.0 F Pulse Rate 80 Respiratory 17 18 22 Rate Blood Pressure 170/55 (mmHg) O2 Sat by Pulse 99 Oximetry 06/10/18 06/10/18 11:09 11:28 Temperature 97.6 F Pulse Rate 66 Respiratory 20 16 Rate Blood Pressure 133/55 (mmHg) O2 Sat by Pulse 100 Oximetry Oxygen Devices in Use Now: Nasal Cannula Appearance: alert, sitting up in the recliner, coughs frequently and becomes short of breath with slight movements Eyes: No Scleral Icterus Ears/Nose/Mouth/Throat: NL Teeth, Lips, Gums Neck: NL Appearance and Movements; NL JVP Respiratory: Symmetrical Chest Expansion and Respiratory Effort, - - scattered wheezing throughout Cardiovascular: NL Sounds; No Murmurs; No JVD, RRR, No Edema Abdominal: NL Sounds; No Tenderness; No Distention Lymphatic: No Cervical Adenopathy Extremities: No Edema Skin: No Rash or Ulcers Neurological: Alert and Oriented x 3 Result Diagrams: 06/10/18 06:54 06/10/18 06:54 Microbiology and Other Data: Microbiology 06/08/18 20:50 Gram Stain - Final Sputum Expectorated 06/08/18 18:20 Legionella Urinary Antigen - Final Urine Negative Legionella Antigen Streptococcus pneumoniae Ag Screen - Final Negative S. pneumo Antigen 06/08/18 14:51 Stool Occult Blood ([facility]) - Final Stool Assess/Plan/Problems-Billing Assessment: 82 yo female with history of suspected chronic bronchitis (has never had PFTs) admitted yesterday with shortness of breath and productive cough, thought to be in copd exacerbation. - Patient Problems (1) COPD exacerbation Current Visit: Yes Status: Acute Code(s): J44.1 - CHRONIC OBSTRUCTIVE PULMONARY DISEASE W (ACUTE) EXACERBATION SNOMED Code(s): 996994988 Comment: Likely related to a URI versus ongoing tobacco exposure CTA negative for PE or pneumonia or edema While she does not believe she has been formally diagnosed with COPD, she does report a chronic ongoing productive cough, and at this time both the cough and the sputum are increased from baseline I am starting solumedrol and adding duoneb to her regimen today needs to quit smoking sputum culture showed normal gopal (2) Leukocytosis Current Visit: Yes Status: Acute Code(s): D72.829 - ELEVATED WHITE BLOOD CELL COUNT, UNSPECIFIED SNOMED Code(s): 191786831 Comment: I suspect an occult pneumonia vs. bronchitis Improving on this regimen though now on steroids (3) UTI (urinary tract infection) Current Visit: Yes Status: Acute Comment: continue ceftriaxone; culture pending (4) Hyponatremia Current Visit: Yes Status: Acute Code(s): E87.1 - HYPO-OSMOLALITY AND HYPONATREMIA SNOMED Code(s): 81043750 Comment: improving likely related to respiratory distress; daughter also cites poor diet that contains more snacks and junk food than nutritious meals (5) EUGENE (acute kidney injury) Current Visit: Yes Status: Acute Code(s): N17.9 - ACUTE KIDNEY FAILURE, UNSPECIFIED SNOMED Code(s): 43865250 Comment: resolved after ivf (6) Ambulatory dysfunction Current Visit: Yes Status: Acute Code(s): R26.2 - DIFFICULTY IN WALKING, NOT ELSEWHERE CLASSIFIED SNOMED Code(s): 374656695 Comment: plan for STR, discussed with case management and Ms. Mcbride and her son (7) Iron deficiency anemia Current Visit: Yes Status: Acute Code(s): D50.9 - IRON DEFICIENCY ANEMIA, UNSPECIFIED SNOMED Code(s): 16295156 Comment: Hgb is 8.5 from 12 four months ago FOBT is negative, however this may warrant c-scope or endoscopy but respiratory status needs improvement first start po iron, trend h&h no active bleeding
[2018-06-10] MEDS: cefTRIAXone(*) 1 GM in NS 0.9% 50 ML* 50 ML IVPB SCH (15:28)
[2018-06-10] MEDS: Azithromycin IV(*) 500 MG in NS 0.9% 250 ML* 250 ML IVPB SCH (16:56)
[2018-06-11] MEDS: methylPREDNISolone SOD 40 MG* 1 ML VIAL IV SCH ×2 (01:23→12:03)
[2018-06-11] MEDS: Heparin VIAL(*) 5000 UNITS/ML VIAL (FIVE THOUSAND) SUBCUT SCH ×3 (05:53→20:05)
[2018-06-11] MEDS: Cholecalciferol TAB* 1000 UNITS PO SCH (08:48)
[2018-06-11] MEDS: Dronabinol CAP* 2.5 MG PO SCH ×2 (08:48→20:05)
[2018-06-11] MEDS: Atenolol TAB* 50 MG PO SCH (08:48)
[2018-06-11] MEDS: Calcium Carbonate TAB* 1250 MG (CALCIUM 500 MG) PO SCH (08:49)
[2018-06-11] MEDS: amLODIPine TAB* 5 MG PO SCH (08:49)
[2018-06-11] MEDS: DULoxetine DR CAP* 30 MG CAP.DR PO SCH (08:49)
[2018-06-11] MEDS: Multivitamins/Minerals TAB PO SCH (08:49)
[2018-06-11] MEDS: Atorvastatin* 20 MG TAB PO SCH (08:49)
[2018-06-11] MEDS: Nystatin TOP POWDER* 15 GM BTL TOPICAL SCH ×2 (08:49→20:15)
[2018-06-11] MEDS: Magnesium Oxide TAB* 400 MG PO SCH ×2 (08:49→20:05)
[2018-06-11] MEDS: Lisinopril TAB* 10 MG PO SCH (08:49)
[2018-06-11] MEDS: Hydrochlorothiazide TAB* 25 MG PO SCH (08:49)
--- NOTE | 2018-06-11 10:49 | RAD ---
HISTORY: cough COMPARISONS: June 08, 2018 VIEWS: 1: frontal portable view of the chest at 9:45 AM FINDINGS: LINES AND TUBES: None. CARDIOMEDIASTINAL SILHOUETTE: The cardiomediastinal silhouette is normal for portable technique. PLEURA: The costophrenic angles are sharp. No pleural abnormalities are noted. LUNG PARENCHYMA: There is patchy alveolar opacification lung bases bilaterally. ABDOMEN: The upper abdomen is clear. There is no subphrenic gas. BONES AND SOFT TISSUES: No bone or soft tissue abnormalities are noted. There is stable calcification of the left axilla. IMPRESSION: PATCHY BIBASILAR ATELECTASIS VERSUS EARLY CONSOLIDATION.
[2018-06-11] MEDS ORDERED: Azithromycin TAB* 250 MG PO ONE (15:23)
--- NOTE | 2018-06-11 15:23 | PN ---
Subjective Date of Service: 06/11/18 Interval History: Ms. Mcbride had an episode of choking during lunch today. She recovered quickly. When I saw her this morning she was feeling a little better but still with a cough and sputum. No chest pain, orthopnea, nausea, vomiting. Family History: Unchanged from Admission Social History: Unchanged from Admission Past Medical History: Unchanged from Admission Objective Active Medications: Acetaminophen (Tylenol Tab*) 650 mg PO Q4H PRN PRN Reason: FEVER/PAIN Last Admin: 06/08/18 20:47 Dose: 650 mg Al Hydrox/Mg Hydrox/Simethicone (Maalox Plus*) 30 ml PO Q6H PRN PRN Reason: INDIGESTION Albuterol/Ipratropium (Duoneb (Albuterol 2.5 Mg/Ipratropium 0.5 Mg)) 1 neb INH Q4H PRN PRN Reason: SOB/WHEEZING Amlodipine Besylate (Norvasc Tab*) 5 mg PO DAILY [facility] Last Admin: 06/11/18 08:49 Dose: 5 mg Atenolol (Tenormin Tab*) 50 mg PO DAILY [facility] Last Admin: 06/11/18 08:48 Dose: 50 mg Atorvastatin Calcium (Lipitor*) 20 mg PO DAILY [facility] Last Admin: 06/11/18 08:49 Dose: 20 mg Benzonatate (Tessalon Cap*) 100 mg PO BID PRN PRN Reason: COUGH Last Admin: 06/09/18 09:01 Dose: 100 mg Calcium Carbonate (Calcium Carbonate Tab*) 1,250 mg PO DAILY [facility] Last Admin: 06/11/18 08:49 Dose: 1,250 mg Cholecalciferol (Vitamin D Tab*) 2,000 units PO DAILY [facility] Last Admin: 06/11/18 08:48 Dose: 2,000 units Dronabinol (Marinol Cap*) 5 mg PO BID [facility] Last Admin: 06/11/18 08:48 Dose: 5 mg Duloxetine HCl (Cymbalta Cap*) 30 mg PO DAILY [facility] Last Admin: 06/11/18 08:49 Dose: 30 mg Guaifenesin (Mucinex*) 600 mg PO BID PRN PRN Reason: COUGH Last Admin: 06/09/18 05:52 Dose: 600 mg Heparin Sodium (Porcine) (Heparin Vial(*)) 5,000 units SUBCUT Q8HR [facility] Last Admin: 06/11/18 05:53 Dose: 5,000 units Hydrochlorothiazide (Hydrodiuril Tab*) 25 mg PO DAILY [facility] Last Admin: 06/11/18 08:49 Dose: 25 mg Ceftriaxone Sodium 1 gm/ (Sodium Chloride) 50 mls @ 200 mls/hr IVPB Q24H [facility] Last Admin: 06/10/18 15:28 Dose: 200 mls/hr Azithromycin 500 mg/ Sodium (Chloride) 250 mls @ 250 mls/hr IVPB Q24H [facility] Last Admin: 06/10/18 16:56 Dose: 250 mls/hr Lisinopril (Prinivil Tab*) 40 mg PO DAILY [facility] Last Admin: 06/11/18 08:49 Dose: 40 mg Magnesium Oxide (Magox 400 Tab*) 400 mg PO BID [facility] Last Admin: 06/11/18 08:49 Dose: 400 mg Methylprednisolone Sodium Succinate (Solu-Medrol 40 Mg) 40 mg IV Q12H [facility] Last Admin: 06/11/18 12:03 Dose: 40 mg Multivitamins/Minerals (Theragran/Minerals Tab*) 1 tab PO DAILY [facility] Last Admin: 06/11/18 08:49 Dose: 1 tab Nystatin (Nystatin Top Powder*) 1 applic TOPICAL BID [facility] Last Admin: 06/11/18 08:49 Dose: 1 applic Ondansetron HCl (Zofran Inj*) 4 mg IV Q4H PRN PRN Reason: NAUSEA/VOMITING Vital Signs - 8 hr 06/11/18 06/11/18 06/11/18 08:00 08:48 11:23 Temperature 98.3 F Pulse Rate 60 Respiratory 20 18 18 Rate Blood Pressure 130/36 (mmHg) O2 Sat by Pulse 98 Oximetry 06/11/18 12:02 Temperature Pulse Rate Respiratory 16 Rate Blood Pressure (mmHg) O2 Sat by Pulse Oximetry Oxygen Devices in Use Now: None Appearance: sitting up in chair, breathing comfortably Eyes: No Scleral Icterus Ears/Nose/Mouth/Throat: NL Teeth, Lips, Gums Neck: NL Appearance and Movements; NL JVP Respiratory: Symmetrical Chest Expansion and Respiratory Effort, Clear to Auscultation Cardiovascular: NL Sounds; No Murmurs; No JVD, RRR Abdominal: NL Sounds; No Tenderness; No Distention Lymphatic: No Cervical Adenopathy Extremities: No Edema Skin: No Rash or Ulcers Neurological: Alert and Oriented x 3, NL Muscle Strength and Tone Result Diagrams: 06/10/18 06:54 06/10/18 06:54 Microbiology and Other Data: Microbiology 06/08/18 20:50 Gram Stain - Final Sputum Expectorated 06/08/18 18:20 Legionella Urinary Antigen - Final Urine Negative Legionella Antigen Streptococcus pneumoniae Ag Screen - Final Negative S. pneumo Antigen 06/08/18 14:51 Stool Occult Blood ([facility]) - Final Stool Assess/Plan/Problems-Billing Assessment: 82 yo female with history of suspected chronic bronchitis (has never had PFTs) admitted yesterday with shortness of breath and productive cough, thought to be in copd exacerbation. - Patient Problems (1) COPD exacerbation Current Visit: Yes Status: Acute Code(s): J44.1 - CHRONIC OBSTRUCTIVE PULMONARY DISEASE W (ACUTE) EXACERBATION SNOMED Code(s): 921797934 Comment: Likely related to a URI versus ongoing tobacco exposure CTA negative for PE or pneumonia or edema While she does not believe she has been formally diagnosed with COPD, she does report a chronic ongoing productive cough, and at this time both the cough and the sputum are increased from baseline continue solumedrol, duoneb, and i will also add azithromycin for anti- inflammatory effect needs to quit smoking sputum culture showed normal gopal (2) Leukocytosis Current Visit: Yes Status: Acute Code(s): D72.829 - ELEVATED WHITE BLOOD CELL COUNT, UNSPECIFIED SNOMED Code(s): 886787897 Comment: present on admission before starting steroids, so I suspect an occult pneumonia vs. bronchitis repeat cxr today shows bibasilar atelectasis vs. early consolidation start azithromycin as above (3) UTI (urinary tract infection) Current Visit: Yes Status: Acute Comment: continue ceftriaxone (4) Hyponatremia Current Visit: Yes Status: Acute Code(s): E87.1 - HYPO-OSMOLALITY AND HYPONATREMIA SNOMED Code(s): 64781058 Comment: improving likely related to respiratory distress; daughter also cites poor diet that contains more snacks and junk food than nutritious meals (5) EUGENE (acute kidney injury) Current Visit: Yes Status: Acute Code(s): N17.9 - ACUTE KIDNEY FAILURE, UNSPECIFIED SNOMED Code(s): 99117792 Comment: resolved after ivf (6) Ambulatory dysfunction Current Visit: Yes Status: Acute Code(s): R26.2 - DIFFICULTY IN WALKING, NOT ELSEWHERE CLASSIFIED SNOMED Code(s): 342438121 Comment: plan for STR, awaiting bed (7) Iron deficiency anemia Current Visit: Yes Status: Acute Code(s): D50.9 - IRON DEFICIENCY ANEMIA, UNSPECIFIED SNOMED Code(s): 57788071 Comment: Hgb is 8.5 from 12 four months ago FOBT is negative, however this may warrant c-scope or endoscopy but respiratory status needs improvement first start po iron, trend h&h no active bleeding
[2018-06-11] MEDS: cefTRIAXone(*) 1 GM in NS 0.9% 50 ML* 50 ML IVPB SCH (16:09)
[2018-06-11] MEDS: Azithromycin IV(*) 500 MG in NS 0.9% 250 ML* 250 ML IVPB SCH (16:15)
[2018-06-11] MEDS: Benzonatate CAP* 100 MG PO PRN (20:04)
[2018-06-11] MEDS: guaiFENesin ER TAB 600 MG PO PRN (20:05)
[2018-06-12] MEDS: methylPREDNISolone SOD 40 MG* 1 ML VIAL IV SCH ×2 (01:10→12:09)
[2018-06-12] MEDS: Heparin VIAL(*) 5000 UNITS/ML VIAL (FIVE THOUSAND) SUBCUT SCH ×3 (05:33→21:08)
[2018-06-12] MEDS: Lisinopril TAB* 10 MG PO SCH (08:55)
[2018-06-12] MEDS: Multivitamins/Minerals TAB PO SCH (08:56)
[2018-06-12] MEDS: Atorvastatin* 20 MG TAB PO SCH (08:56)
[2018-06-12] MEDS: amLODIPine TAB* 5 MG PO SCH (08:57)
[2018-06-12] MEDS: Magnesium Oxide TAB* 400 MG PO SCH ×2 (08:57→21:08)
[2018-06-12] MEDS: Cholecalciferol TAB* 1000 UNITS PO SCH (08:58)
[2018-06-12] MEDS: Calcium Carbonate TAB* 1250 MG (CALCIUM 500 MG) PO SCH (08:59)
[2018-06-12] MEDS: Atenolol TAB* 50 MG PO SCH (08:59)
[2018-06-12] MEDS: DULoxetine DR CAP* 30 MG CAP.DR PO SCH (08:59)
[2018-06-12] MEDS ORDERED: Azithromycin TAB* 250 MG PO SCH (09:00)
[2018-06-12] MEDS: Hydrochlorothiazide TAB* 25 MG PO SCH (09:00)
[2018-06-12] MEDS: Dronabinol CAP* 2.5 MG PO SCH ×2 (09:00→21:12)
--- NOTE | 2018-06-12 11:15 | PN ---
Subjective Date of Service: 06/12/18 Interval History: Choked on her lunch yesterday. Says this doesn't happen to her usually; this was unusual. Feels her breathing is getting better. Less hoarse. No sputum. No fevers. Family History: Unchanged from Admission Social History: Unchanged from Admission Past Medical History: Unchanged from Admission Objective Active Medications: Acetaminophen (Tylenol Tab*) 650 mg PO Q4H PRN PRN Reason: FEVER/PAIN Last Admin: 06/08/18 20:47 Dose: 650 mg Al Hydrox/Mg Hydrox/Simethicone (Maalox Plus*) 30 ml PO Q6H PRN PRN Reason: INDIGESTION Albuterol/Ipratropium (Duoneb (Albuterol 2.5 Mg/Ipratropium 0.5 Mg)) 1 neb INH Q4H PRN PRN Reason: SOB/WHEEZING Amlodipine Besylate (Norvasc Tab*) 5 mg PO DAILY [facility] Last Admin: 06/12/18 08:57 Dose: 5 mg Atenolol (Tenormin Tab*) 50 mg PO DAILY [facility] Last Admin: 06/12/18 08:59 Dose: 50 mg Atorvastatin Calcium (Lipitor*) 20 mg PO DAILY [facility] Last Admin: 06/12/18 08:56 Dose: 20 mg Azithromycin (Zithromax Tab*) 250 mg PO DAILY [facility] Last Admin: 06/12/18 08:57 Dose: 250 mg Benzonatate (Tessalon Cap*) 100 mg PO BID PRN PRN Reason: COUGH Last Admin: 06/11/18 20:04 Dose: 100 mg Calcium Carbonate (Calcium Carbonate Tab*) 1,250 mg PO DAILY [facility] Last Admin: 06/12/18 08:59 Dose: 1,250 mg Cholecalciferol (Vitamin D Tab*) 2,000 units PO DAILY [facility] Last Admin: 06/12/18 08:58 Dose: 2,000 units Dronabinol (Marinol Cap*) 5 mg PO BID [facility] Last Admin: 06/12/18 09:00 Dose: 5 mg Duloxetine HCl (Cymbalta Cap*) 30 mg PO DAILY [facility] Last Admin: 06/12/18 08:59 Dose: 30 mg Guaifenesin (Mucinex*) 600 mg PO BID PRN PRN Reason: COUGH Last Admin: 06/11/18 20:05 Dose: 600 mg Heparin Sodium (Porcine) (Heparin Vial(*)) 5,000 units SUBCUT Q8HR [facility] Last Admin: 06/12/18 05:33 Dose: 5,000 units Hydrochlorothiazide (Hydrodiuril Tab*) 25 mg PO DAILY [facility] Last Admin: 06/11/18 08:49 Dose: 25 mg Ceftriaxone Sodium 1 gm/ (Sodium Chloride) 50 mls @ 200 mls/hr IVPB Q24H [facility] Last Admin: 06/11/18 16:09 Dose: 200 mls/hr Lisinopril (Prinivil Tab*) 40 mg PO DAILY [facility] Last Admin: 06/12/18 08:55 Dose: 40 mg Magnesium Oxide (Magox 400 Tab*) 400 mg PO BID [facility] Last Admin: 06/12/18 08:57 Dose: 400 mg Methylprednisolone Sodium Succinate (Solu-Medrol 40 Mg) 40 mg IV Q12H [facility] Last Admin: 06/12/18 01:10 Dose: 40 mg Multivitamins/Minerals (Theragran/Minerals Tab*) 1 tab PO DAILY [facility] Last Admin: 06/12/18 08:56 Dose: 1 tab Nystatin (Nystatin Top Powder*) 1 applic TOPICAL BID [facility] Last Admin: 06/11/18 20:15 Dose: 1 applic Vital Signs - 8 hr 06/12/18 06/12/18 06/12/18 03:35 06:13 06:39 Temperature 99.1 F 98.0 F Pulse Rate 69 77 72 Respiratory 18 20 Rate Blood Pressure 160/54 173/57 160/38 (mmHg) O2 Sat by Pulse 95 96 Oximetry 06/12/18 06/12/18 08:00 09:00 Temperature Pulse Rate Respiratory 16 16 Rate Blood Pressure (mmHg) O2 Sat by Pulse Oximetry Oxygen Devices in Use Now: None Appearance: alert, sitting up in chair watching tv Eyes: No Scleral Icterus Ears/Nose/Mouth/Throat: NL Teeth, Lips, Gums Neck: NL Appearance and Movements; NL JVP Respiratory: Symmetrical Chest Expansion and Respiratory Effort, Clear to Auscultation, - - barrel chest Cardiovascular: NL Sounds; No Murmurs; No JVD, RRR, No Edema Abdominal: NL Sounds; No Tenderness; No Distention Lymphatic: No Cervical Adenopathy Extremities: No Edema Skin: No Rash or Ulcers Neurological: Alert and Oriented x 3 Result Diagrams: 06/10/18 06:54 06/10/18 06:54 Microbiology and Other Data: Microbiology 06/08/18 20:50 Gram Stain - Final Sputum Expectorated 06/08/18 18:20 Legionella Urinary Antigen - Final Urine Negative Legionella Antigen Streptococcus pneumoniae Ag Screen - Final Negative S. pneumo Antigen 06/08/18 14:51 Stool Occult Blood (ALEXANDER) - Final Stool Assess/Plan/Problems-Billing Assessment: 82 yo female with history of suspected chronic bronchitis (has never had PFTs) admitted yesterday with shortness of breath and productive cough, thought to be in copd exacerbation. - Patient Problems (1) COPD exacerbation Current Visit: Yes Status: Acute Code(s): J44.1 - CHRONIC OBSTRUCTIVE PULMONARY DISEASE W (ACUTE) EXACERBATION SNOMED Code(s): 606764158 Comment: Likely related to ongoing tobacco use +/- pneumonia While she does not believe she has been formally diagnosed with COPD, she does report a chronic ongoing productive cough, and at this time both the cough and the sputum are increased from baseline continue solumedrol, duoneb, and azithromycin/ceftriaxone needs to quit smoking sputum culture showed normal gopal (2) UTI (urinary tract infection) Current Visit: Yes Status: Acute Comment: continue ceftriaxone (3) Hyponatremia Current Visit: Yes Status: Acute Code(s): E87.1 - HYPO-OSMOLALITY AND HYPONATREMIA SNOMED Code(s): 63373187 Comment: improving likely related to respiratory distress; daughter also cites poor diet that contains more snacks and junk food than nutritious meals (4) EUGENE (acute kidney injury) Current Visit: Yes Status: Acute Code(s): N17.9 - ACUTE KIDNEY FAILURE, UNSPECIFIED SNOMED Code(s): 43413941 Comment: resolved after ivf (5) Ambulatory dysfunction Current Visit: Yes Status: Acute Code(s): R26.2 - DIFFICULTY IN WALKING, NOT ELSEWHERE CLASSIFIED SNOMED Code(s): 175758123 Comment: plan for STR, awaiting bed (6) Iron deficiency anemia Current Visit: Yes Status: Acute Code(s): D50.9 - IRON DEFICIENCY ANEMIA, UNSPECIFIED SNOMED Code(s): 49082702 Comment: Hgb is 8.5 from 12 four months ago FOBT is negative, however this may warrant c-scope or endoscopy but respiratory status needs improvement first start po iron, trend h&h no active bleeding
[2018-06-12] MEDS: Nystatin TOP POWDER* 15 GM BTL TOPICAL SCH ×2 (13:13→21:12)
[2018-06-12] MEDS: predniSONE TAB* 50 MG PO SCH (14:01)
[2018-06-13] MEDS: Heparin VIAL(*) 5000 UNITS/ML VIAL (FIVE THOUSAND) SUBCUT SCH ×3 (06:08→21:14)
[2018-06-13] MEDS ORDERED: Levofloxacin TAB* 750 MG PO SCH ×2 (09:00)
[2018-06-13] MEDS: Multivitamins/Minerals TAB PO SCH (09:07)
[2018-06-13] MEDS: DULoxetine DR CAP* 30 MG CAP.DR PO SCH (09:07)
[2018-06-13] MEDS: Dronabinol CAP* 2.5 MG PO SCH ×2 (09:07→21:13)
[2018-06-13] MEDS: predniSONE TAB* 50 MG PO SCH (09:08)
[2018-06-13] MEDS: Magnesium Oxide TAB* 400 MG PO SCH ×2 (09:08→21:13)
[2018-06-13] MEDS: Atorvastatin* 20 MG TAB PO SCH (09:08)
[2018-06-13] MEDS: Nystatin TOP POWDER* 15 GM BTL TOPICAL SCH ×2 (09:08→21:14)
[2018-06-13] MEDS: Calcium Carbonate TAB* 1250 MG (CALCIUM 500 MG) PO SCH (09:08)
[2018-06-13] MEDS: Hydrochlorothiazide TAB* 25 MG PO SCH (09:08)
[2018-06-13] MEDS: Lisinopril TAB* 10 MG PO SCH (09:08)
[2018-06-13] MEDS: Cholecalciferol TAB* 1000 UNITS PO SCH (09:08)
[2018-06-13] MEDS: Atenolol TAB* 50 MG PO SCH (09:08)
[2018-06-13] MEDS: amLODIPine TAB* 5 MG PO SCH (09:08)
--- NOTE | 2018-06-13 10:05 | PN ---
Subjective Date of Service: 06/13/18 Interval History: Ms. Mcbride reports feeling very tired but otherwise feeling well. She denies chest pain, SOB, nausea, or abdominal pain. Family History: Unchanged from Admission Social History: Unchanged from Admission Past Medical History: Unchanged from Admission Objective Active Medications: Acetaminophen (Tylenol Tab*) 650 mg PO Q4H PRN Al Hydrox/Mg Hydrox/Simethicone (Maalox Plus*) 30 ml PO Q6H PRN Albuterol/Ipratropium (Duoneb (Albuterol 2.5 Mg/Ipratropium 0.5 Mg)) 1 neb INH Q4H PRN Amlodipine Besylate (Norvasc Tab*) 5 mg PO DAILY [facility] Atenolol (Tenormin Tab*) 50 mg PO DAILY [facility] Atorvastatin Calcium (Lipitor*) 20 mg PO DAILY [facility] Benzonatate (Tessalon Cap*) 100 mg PO BID PRN Calcium Carbonate (Calcium Carbonate Tab*) 1,250 mg PO DAILY [facility] Cholecalciferol (Vitamin D Tab*) 2,000 units PO DAILY [facility] Dronabinol (Marinol Cap*) 5 mg PO BID [facility] Duloxetine HCl (Cymbalta Cap*) 30 mg PO DAILY [facility] Guaifenesin (Mucinex*) 600 mg PO BID PRN Heparin Sodium (Porcine) (Heparin Vial(*)) 5,000 units SUBCUT Q8HR [facility] Hydrochlorothiazide (Hydrodiuril Tab*) 25 mg PO DAILY [facility] Levofloxacin (Levaquin Tab*) 750 mg PO EVERY OTHER DAY [facility] Lisinopril (Prinivil Tab*) 40 mg PO DAILY [facility] Magnesium Oxide (Magox 400 Tab*) 400 mg PO BID [facility] Multivitamins/Minerals (Theragran/Minerals Tab*) 1 tab PO DAILY [facility] Nystatin (Nystatin Top Powder*) 1 applic TOPICAL BID [facility] Prednisone (Deltasone Tab*) 50 mg PO DAILY [facility] Vital Signs: Temp Pulse Resp BP Pulse Ox 97.9 F 64 20 145/52 100 06/13/18 07:57 06/13/18 07:57 06/13/18 09:07 06/13/18 07:57 06/13/18 07:57 Oxygen Devices in Use Now: None Appearance: Female sitting up in chair in NAD Eyes: No Scleral Icterus Ears/Nose/Mouth/Throat: Mucous Membranes Moist Neck: Trachea Midline Respiratory: Symmetrical Chest Expansion and Respiratory Effort, Clear to Auscultation Cardiovascular: NL Sounds; No Murmurs; No JVD, No Edema Abdominal: NL Sounds; No Tenderness; No Distention Lymphatic: No Cervical Adenopathy Extremities: No Edema Skin: No Rash or Ulcers Neurological: Alert and Oriented x 3, NL Muscle Strength and Tone Nutrition: Taking PO's Result Diagrams: 06/10/18 06:54 06/10/18 06:54 Assess/Plan/Problems-Billing Assessment: Ms. Mcbride is an 82 yo female with history of suspected chronic bronchitis ( has never had PFTs) admitted yesterday with shortness of breath and productive cough, thought to be in COPD exacerbation. - Patient Problems (1) COPD exacerbation Comment: - Resolving, on room air. 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 While she does not believe she has been formally diagnosed with COPD, she does report a chronic ongoing productive cough. - Continue prednisone, duoneb, and complete course of azithromycin. - Smoking cessation encouraged (only smokes 1 cigarette per day) (2) Pneumonia Comment: - Leukocytosis on arrival (persistent, but now on steroids). CRP 190s. Afebrile. - No clear infiltrate on CT chest. - Complete course of azithromycin. (3) Diarrhea Comment: - Suspect due to antibiotics, plan to de-escalate down to azithromycin. - Start lactobacillus. (4) EUGENE (acute kidney injury) Comment: - Resolved with IVF. (5) UTI (urinary tract infection) Comment: - UA positive but urine culture with contaminant. Completed 4 days of ceftriaxone plus a day of levaquin. - Re-send UA now to verify treatment. (6) Iron deficiency anemia Comment: - Hgb is 8.5, was 12 four months ago, stable since arrival. - FOBT is negative, will need colonoscopy or endoscopy but respiratory status needs improvement first - Continue po iron. Stop home naproxen and aspirin, start omeprazole. (7) Chronic pain Comment: - Continue drabinol for chronic pain. (8) Hyponatremia Comment: - Stable, chronic, asymptomatic. - Stop hctz. (9) Ambulatory dysfunction Comment: - Plan for STR, awaiting bed (10) Hypertension Comment: - SBP 140-160s. - Continue atenolol and lisinopril, increase amlodipine. Stop hctz due to hyponatremia. (11) Hyperlipidemia Comment: - Continue atorvastatin. (12) DVT prophylaxis Comment: - Heparin SQ. (13) Full code status Comment: Status and Disposition: Inpatient, plan for STR.
[2018-06-13] MEDS: Lactobacillus Acidophilus* 1 TAB PO SCH (21:13)
[2018-06-14] MEDS ORDERED: Omeprazole CAP* 20 MG PO SCH (06:00)
[2018-06-14] MEDS: Heparin VIAL(*) 5000 UNITS/ML VIAL (FIVE THOUSAND) SUBCUT SCH ×2 (06:32→14:33)
--- NOTE | 2018-06-14 07:34 | PN ---
Subjective Date of Service: 06/14/18 Interval History: Ms. Mcbride reports feeling well today other than feeling weak and tired. She denies chest pain, SOB, nausea, or abdominal pain. She is agreeable to the plan for discharge for short term rehab before returning home with her daughter. Family History: Unchanged from Admission Social History: Unchanged from Admission Past Medical History: Unchanged from Admission Objective Active Medications: Acetaminophen (Tylenol Tab*) 650 mg PO Q4H PRN Al Hydrox/Mg Hydrox/Simethicone (Maalox Plus*) 30 ml PO Q6H PRN Albuterol/Ipratropium (Duoneb (Albuterol 2.5 Mg/Ipratropium 0.5 Mg)) 1 neb INH Q4H PRN Amlodipine Besylate (Norvasc Tab*) 10 mg PO DAILY [facility] Atenolol (Tenormin Tab*) 50 mg PO DAILY [facility] Atorvastatin Calcium (Lipitor*) 20 mg PO DAILY [facility] Azithromycin (Zithromax Tab*) 250 mg PO DAILY [facility] Benzonatate (Tessalon Cap*) 100 mg PO BID PRN Calcium Carbonate (Calcium Carbonate Tab*) 1,250 mg PO DAILY [facility] Cholecalciferol (Vitamin D Tab*) 2,000 units PO DAILY [facility] Dronabinol (Marinol Cap*) 5 mg PO BID [facility] Duloxetine HCl (Cymbalta Cap*) 30 mg PO DAILY [facility] Guaifenesin (Mucinex*) 600 mg PO BID PRN Heparin Sodium (Porcine) (Heparin Vial(*)) 5,000 units SUBCUT Q8HR [facility] Lactobacillus Rhamnosus (Lactobacillus Acidophilus*) 1 tab PO BID [facility] Lisinopril (Prinivil Tab*) 40 mg PO DAILY [facility] Magnesium Oxide (Magox 400 Tab*) 400 mg PO BID [facility] Multivitamins/Minerals (Theragran/Minerals Tab*) 1 tab PO DAILY [facility] Nystatin (Nystatin Top Powder*) 1 applic TOPICAL BID [facility] Omeprazole (Prilosec Cap*) 20 mg PO 0600 [facility] Prednisone (Deltasone Tab*) 50 mg PO DAILY [facility] Vital Signs: Temp Pulse Resp BP Pulse Ox 98.6 F 64 16 159/51 100 06/14/18 02:54 06/14/18 02:54 06/14/18 02:54 06/14/18 02:54 06/14/18 02:54 Oxygen Devices in Use Now: None Appearance: Female lying in bed in NAD Eyes: No Scleral Icterus Ears/Nose/Mouth/Throat: Mucous Membranes Moist Neck: Trachea Midline Respiratory: Symmetrical Chest Expansion and Respiratory Effort, Clear to Auscultation Cardiovascular: NL Sounds; No Murmurs; No JVD, No Edema Abdominal: NL Sounds; No Tenderness; No Distention Extremities: No Edema Skin: No Rash or Ulcers Neurological: Alert and Oriented x 3, NL Muscle Strength and Tone Nutrition: Taking PO's Result Diagrams: 06/14/18 09:24 06/14/18 07:40 Assess/Plan/Problems-Billing Assessment: Ms. Mcbride is an 82 yo female with history of suspected COPD (has never had PFTs) admitted yesterday with shortness of breath and productive cough, thought to be in COPD exacerbation with possible component of pneumonia. - Patient Problems (1) COPD exacerbation Comment: - Resolving, on room air. - meterman history of tobacco abuse. While she does not believe she has been formally diagnosed with COPD, she does report a chronic ongoing productive cough. - Taper prednisone, continue duoneb, and complete course of azithromycin. - Smoking cessation encouraged (smokes 1 cigarette per day). - Plan to d/c with dannie, collette and pulmonology follow up. (2) Pneumonia Comment: - Leukocytosis on arrival (persistent, but now on steroids). CRP 190s. Afebrile. - No clear infiltrate on CT chest. - Complete course of azithromycin. (3) Diarrhea Comment: - Resolving. Suspect due to antibiotics, plan to de-escalate down to azithromycin. - Continue lactobacillus. (4) Iron deficiency anemia Comment: - Hgb is 8.5, was 12 four months ago, stable since arrival. Now up to 9.8 today. - FOBT is negative, will need colonoscopy or endoscopy but respiratory status needs improvement first - Continue po iron. Stop home naproxen and aspirin, start omeprazole. (5) EUGENE (acute kidney injury) Comment: - Resolved with IVF. (6) UTI (urinary tract infection) Comment: - UA positive but urine culture with contaminant. Completed 4 days of ceftriaxone plus a day of levaquin. (7) Chronic pain Comment: - Continue drabinol for chronic pain. (8) Hypertension Comment: - SBP 140-160s. - Continue atenolol and lisinopril, increase amlodipine. Stop hctz due to hyponatremia. (9) Hyponatremia Comment: - Stable, chronic, asymptomatic. - Stop hctz. (10) Hyperlipidemia Comment: - Continue atorvastatin. (11) Ambulatory dysfunction Comment: - Plan for STR, awaiting bed (12) DVT prophylaxis Comment: - Heparin SQ. (13) Full code status Comment: Status and Disposition: Inpatient, discharge to [facility].
[2018-06-14 08:39] LABS: EGFR Non-African American 49.5 (>60)
[2018-06-14] MEDS ORDERED: amLODIPine TAB* 5 MG PO SCH (09:00)
[2018-06-14] MEDS ORDERED: Azithromycin TAB* 250 MG PO SCH (09:00)
[2018-06-14] MEDS ORDERED: Ferrous Sulfate TAB* 325 MG PO SCH (09:00)
[2018-06-14] MEDS ORDERED: predniSONE TAB* 20 MG PO SCH (09:00)
[2018-06-14] MEDS: Lisinopril TAB* 10 MG PO SCH (09:47)
[2018-06-14] MEDS: Cholecalciferol TAB* 1000 UNITS PO SCH (09:48)
[2018-06-14] MEDS: Multivitamins/Minerals TAB PO SCH (09:50)
[2018-06-14] MEDS: Atorvastatin* 20 MG TAB PO SCH (09:51)
[2018-06-14] MEDS: Magnesium Oxide TAB* 400 MG PO SCH (09:52)
[2018-06-14] MEDS: Dronabinol CAP* 2.5 MG PO SCH (09:52)
[2018-06-14] MEDS: DULoxetine DR CAP* 30 MG CAP.DR PO SCH (09:53)
[2018-06-14] MEDS: Atenolol TAB* 50 MG PO SCH (09:53)
[2018-06-14] MEDS: Lactobacillus Acidophilus* 1 TAB PO SCH (09:53)
[2018-06-14] MEDS: Calcium Carbonate TAB* 1250 MG (CALCIUM 500 MG) PO SCH (09:53)
[2018-06-14] MEDS: Nystatin TOP POWDER* 15 GM BTL TOPICAL SCH (09:54)
[2018-06-14 10:00] LABS: Hematocrit 29 % (35-47); Hemoglobin 9.8 g/dl (12.0-16.0); Mean Corpuscular HGB Conc 34 g/dl (31-36); Mean Corpuscular Hemoglobin 29 pg (27-31); Mean Corpuscular Volume 87 fL (80-97); Platelet Count 464 10^3/ul (150-450); Red Blood Count 3.36 10^6/ul (4.00-5.40); Red Cell Distribution Width 14 % (10.5-15); White Blood Count 13.7 10^3/ul (3.5-10.8)
[2018-06-14 10:42] LABS: ABS Basophils 0.1 10^3/ul (0-0.2); ABS Eosinophils 0.1 10^3/ul (0-0.6); ABS Lymphocytes 3.2 10^3/ul (1.0-4.8); ABS Monocytes 1.7 10^3/ul (0-0.8); ABS Neutrophils 8.7 10^3/ul (1.5-7.7); ABS Nucleated RBC 0 10^3/ul; Eosinophil % 0.4 % (0-6); Nucleated Red Blood Cells % 0.1
--- NOTE | 2018-06-14 11:54 | DS ---
CC: Dr. Hartmann; [facility] * Please note that this Discharge Summary will serve as a History and Physical for admission to [facility] DATE OF ADMISSION: 06/09/18 DATE OF DISCHARGE: 06/14/18 ATTENDING PHYSICIAN: Dr. Celina George * (dictation provided by Leta Calzada NP ). PRIMARY DIAGNOSIS: 1. Chronic obstructive pulmonary disease exacerbation. 2. Pneumonia. 3. Iron deficiency anemia. 4. Hyponatremia. 5. Acute kidney injury. 6. Urinary tract infection. SECONDARY DIAGNOSES: 1. Hypertension. 2. Hyperlipidemia. 3. Chronic obstructive pulmonary disease. PAST SURGICAL HISTORY: 1. Right carpal tunnel surgery. 2. Right shoulder surgery. 3. Right thumb surgery. 4. Tubal ligation. 5. Tonsillectomy. 6. Tooth extraction. MEDICATIONS AT THE TIME OF DISCHARGE: 1. Cholecalciferol 2000 units p.o. daily. 2. Calcium carbonate 500 mg p.o. daily. 3. Multivitamin with mineral 1 tab p.o. daily. 4. Simvastatin 40 mg p.o. daily. 5. Magnesium oxide 400 mg p.o. b.i.d. 6. Atenolol 50 mg p.o. daily. 7. Duloxetine DR 30 mg p.o. daily. 8. Lisinopril 40 mg p.o. daily. 9. Dronabinol 5 mg p.o. b.i.d. 10. Prednisone 40 mg to taper. 11. Guaifenesin ER 600 mg p.o. b.i.d. p.r.n. 12. Amlodipine 10 mg daily (new dose). 13. Omeprazole 20 mg p.o. daily (new medication). 14. Nystatin powder topically b.i.d. 15. Lactobacillus 1 tab p.o. b.i.d. (new medication). 16. Ferrous sulfate 325 mg p.o. daily (new medication). 17. Benzonatate 100 mg p.o. b.i.d. p.r.n. 18. Albuterol p.r.n. 19. Tylenol 650 mg p.o. every 4 hours p.r.n. Hold hydrochlorothiazide, naproxen and aspirin. HOSPITAL COURSE: Ms. Mcbride is a n 82-year-old female with a mast medical history of suspected COPD, hypertension and hyperlipidemia who presented to the hospital on 06/08/18 with concern for shortness of breath, cough, and sore throat. Please see the dictated H&P from Tasha Hinds NP for complete details. In brief, the patient reported increased shortness of breath, sore throat, chills and low grade fever in the a.m. prior to arrival to the ED. She was seen at her primary care physician's office, Dr. Hartmann, who noted that she was anemic and suspected that perhaps her symptoms were attributed to this new anemia with an hemoglobin of 8.5. In the emergency room here workup confirmed leukocytosis, anemia, shortness of breath and an elevated D-dimer. She had a chest x-ray which showed stigmata of obstructive lung disease only. Because of the elevated D-dimer she did undergo chest thorax CTA which showed "no CT evidence of acute pulmonary embolic disease, mild mediastinal adenopathy and peribronchial thickening in the lung bases". She was hyponatremic with a sodium of 124. She showed iron deficiency with an iron less than 15 and iron saturation of 5. Her CRP was 197.90. Her troponin was normal. Ms. Mcbride was admitted to the hospital. She was treated for COPD exacerbation and likely atypical pneumonia with steroids, ceftriaxone and azithromycin. With this she has had good improvement of her shortness of breath and resolution of her hypoxia. She did have a repeat chest x-ray on 06/11/18 which showed patchy bibasilar atelectasis versus early consolidation. Despite this she has continued to progress well with treatment. Other issues noted during the hospitalization were hyponatremia which has been a chronic issue for her. I suspect this in part due to hydrochlorothiazide which I have discontinued. Her blood pressure has been running about 150 -160 with the discontinuation of hydrochlorothiazide. I have increased her amlodipine from 5 to 10 mg daily. However, she may need further adjustment of blood pressure medications going forward. Other issues identified here were the iron deficiency anemia. She had no report of blood per stool or dark tarry stool. The stool occult blood was negative. I question whether or not her anemia could be related to the use of naproxen which she says she uses frequently, as well as aspirin. I have asked her to discontinue these medications and to start iron supplementation, as well as omeprazole. Once her respiratory status has improved she can go for an outpatient endoscopy as needed. Patient states she has never had a colonoscopy in the past, so this would be a prudent plan. Without blood products the patient 's anemia is correcting on its own and on the day of discharge it is 9.8 for hemoglobin and hematocrit 29. She also had suspected urinary tract infection with positive UA, but the sample was contaminated and culture was not available. She received treatment for her pneumonia with ceftriaxone and azithromycin, which I would anticipate would treat UTI as well. Patient had mild acute kidney injury which resolved with IV fluids. After her illness, Ms. Mcbride remains weak and unable to care for herself independently at home. She has been deemed by physical therapy to need continued therapy and therefore is being transitioned to [facility] for short term rehab. DISPOSITION: To [facility]. DIET: Low fat, low salt. ACTIVITY: As tolerated. FOLLOW-UP PLANS: Please followup with Dr. Hartmann at the time of discharge from [facility]. Approximately 60 minutes were spent in the discharge of this patient with more than half that time spent with the patient at the bedside reviewing the events leading up and during this hospitalization, performing the physical examination , and reviewing the plan of care. LETA CALZADA NP [id number]/[facility] #: [id number] JEANNA
[2018-06-14 13:17] VITALS: BP 132/47
[2018-06-14 13:41] LABS: Urine Appearance Cloudy; Urine Blood 1+ (Negative); Urine Color Straw; Urine Ketones Negative (Negative); Urine Protein 2+(100 mg/dL) (Negative); Urine Red Blood Cell Trace(0-2/hpf) (Absent); Urine Specific Gravity 1.008 (1.010-1.030); Urine Urobilinogen Negative (Negative); Urine White Blood Cell Trace(0-5/hpf) (Absent)
== END 2018-06-14 14:30 | DRG 190 ==
LOC: ED 12:59 → MED 16:20 → OBSVTOIN 06-09 15:30
PROVIDERS: ADMIT Student in an Organized Health Care Education/Training Program; ATTEND Internal Medicine
DX: J44.1 Chronic obstructive pulmonary disease with (acute) exacerbation (principal); J18.9 Pneumonia, unspecified organism; E87.1 Hypo-osmolality and hyponatremia; N17.9 Acute kidney failure, unspecified; N39.0 Urinary tract infection, site not specified; D50.9 Iron deficiency anemia, unspecified; B95.2 Enterococcus as the cause of diseases classified elsewhere; I10 Essential (primary) hypertension; E78.5 Hyperlipidemia, unspecified; Z79.1 Long term (current) use of non-steroidal anti-inflammatories (NSAID); Z79.82 Long term (current) use of aspirin; Z79.899 Other long term (current) drug therapy; F17.290 Nicotine dependence, other tobacco product, uncomplicated
CPT/HCPCS: 36415; 71045; 71275; 80048; 80053; 81003; 81015; 82270; 82550; 82553; 82607; 82728; 82746; 83540; 83550; 83605; 83690; 83735; 83880; 84145; 84443; 84484; 85025; 85027; 85045; 85379; 85610; 85730; 86140; 86850; 86900; 86901; 87070; 87077; 87086; 87186; 87205; 87899; 93005; 99285; A9270-GY; G0378; G8978-GP-CI; G8978-GP-CJ; G8978-GP-CK; G8979-GP-CH; G8979-GP-CI; J0456; J0696; J1644; J2920; J3475; J7512; Q9967

== ENCOUNTER 2023-07-05 15:31 | Inpatient (IN) ==
[2023-07-05 17:11] LABS: ABS Eosinophils 0.1 10^3/uL (0.0-0.5); ABS Lymphocytes 2.1 10^3/uL (1.0-4.8); ABS Monocytes 1.3 10^3/uL (0.0-0.9); ABS Neutrophils 6.6 10^3/uL (1.5-7.6); ABS Nucleated RBC 0.01 10^3/ul; Eosinophil % 0.9 %; Hematocrit 23.8 % (35-45); Hemoglobin 7.6 g/dL (11.5-14.3); Lymphocyte % 21.3 %; Mean Corpuscular Hemoglobin 28.1 pg (27-33); Mean Platelet Volume 7.4 fL (7.5-11.2); Nucleated Red Blood Cells % 0.1 /100 WBC (0.0-0.4); Platelet Count 376 10^3/uL (150-450); Red Blood Count 2.71 10^6/uL (3.63-4.92); Red Cell Distribution Width 18.7 % (12-17); White Blood Count 10.1 10^3/uL (3.8-11.8)
[2023-07-05 17:30] LABS: Albumin 2.9 g/dL (3.2-5.2); C Reactive Protein 178.16 mg/L (<8.01); Calcium 8.3 mg/dL (8.6-10.3); Creatinine, Serum 4.68 mg/dL (0.51-0.95); Globulin 2.9 g/dL (2-4); Potassium 5.4 mmol/L (3.5-5.0); Total Bilirubin 0.4 mg/dL (0.2-1.0); Total Protein 5.8 g/dL (6.4-8.9); eGFR CKD-EPI 8.5 (>60)
[2023-07-05 17:39] LABS: Activated Partial Thrombo Time 33.6 seconds (26.0-38.0); INR 1.24 (0.88-1.18)
[2023-07-05] MEDS ORDERED: Piperacillin/Tazobac 3.375 BAG 3.375 GM/100 ML BAG IV ONE (17:46)
[2023-07-05] MEDS ORDERED: Ondansetron 4 mg VIAL 2 MG/ML 2 ml VIAL IV PRN (19:04)
[2023-07-05] MEDS ORDERED: Albuterol/Ipratropium NEB.SOL (2.5/0.5 MG) 3 ML NEB.SOLN INH PRN (19:53)
[2023-07-05] MEDS ORDERED: SODIUM ZIRCONIUM CYCLOSILICATE 10 GM PACKET PO ONE (19:56)
[2023-07-05] MEDS ORDERED: Lactated Ringers 1000 ml BAG 1,000 ML IV SCH (20:00)
[2023-07-05] MEDS ORDERED: HYDROmorphone 1 MG/1 ML SYRINGE IV ONE (20:12)
[2023-07-05] MEDS ORDERED: HYDROmorphone 1 MG/1 ML SYRINGE IV PRN (20:13)
[2023-07-05 20:52] LABS: Ferritin 548.3 ng/mL (11-307)
[2023-07-05] MEDS ORDERED: Vancomycin per Pharmacy 1 EA NOTE FOLLOW UP PRN (21:00)
[2023-07-05] MEDS ORDERED: fentaNYL PATCH 12 MCG/HR 1 PATCH TRANSDERM SCH (21:00)
[2023-07-05] MEDS ORDERED: Vancomycin 750 MG in NS 0.9% 250 ml 250 ML IVPB ONE (21:00)
[2023-07-05] MEDS ORDERED: Zosyn per Pharmacy NOTE FOLLOW UP SCH (21:00)
[2023-07-05] MEDS ORDERED: NS 0.9% 1000 ml BAG 1,000 ML IV ONE (22:49)
[2023-07-05] MEDS: Senna TAB 8.6 mg TAB PO SCH (22:57)
[2023-07-05] MEDS: Heparin 5000 UNITS/ML 1 mL VIAL SUBCUT SCH (23:09)
[2023-07-06] MEDS: ZOSYN 3.375 GM Q12H per EXTENDED INFUSION IV SCH ×2 (00:52→15:22)
[2023-07-06 05:43] LABS: ABS Basophils 0.1 10^3/uL (0.0-0.1); ABS Eosinophils 0.1 10^3/uL (0.0-0.5); ABS Lymphocytes 1.9 10^3/uL (1.0-4.8); ABS Monocytes 0.8 10^3/uL (0.0-0.9); ABS Neutrophils 3.8 10^3/uL (1.5-7.6); ABS Nucleated RBC 0.01 10^3/ul; Eosinophil % 1.4 %; Hematocrit 22.6 % (35-45); Hemoglobin 7.3 g/dL (11.5-14.3); Lymphocyte % 28.5 %; Mean Corpuscular Hemoglobin 28.6 pg (27-33); Mean Corpuscular Hgb Conc 32.3 g/dL (31-36); Mean Corpuscular Volume 88.7 fL (80-97); Mean Platelet Volume 7.2 fL (7.5-11.2); Nucleated Red Blood Cells % 0.2 /100 WBC (0.0-0.4); Platelet Count 379 10^3/uL (150-450); Red Blood Count 2.55 10^6/uL (3.63-4.92); Red Cell Distribution Width 18.8 % (12-17); White Blood Count 6.6 10^3/uL (3.8-11.8)
[2023-07-06 05:51] LABS: INR 1.24 (0.88-1.18)
[2023-07-06] MEDS ORDERED: HYDROmorphone 1 MG/1 ML SYRINGE IV SLOW PU ONE (05:52)
[2023-07-06 06:04] LABS: Albumin 2.7 g/dL (3.2-5.2); C Reactive Protein 186.74 mg/L (<8.01); Calcium 8.1 mg/dL (8.6-10.3); Creatinine, Serum 4.84 mg/dL (0.51-0.95); Globulin 2.6 g/dL (2-4); Phosphorus 4.2 mg/dL (2.5-5.0); Potassium 4.9 mmol/L (3.5-5.0); Total Bilirubin 0.4 mg/dL (0.2-1.0); Total Protein 5.3 g/dL (6.4-8.9); eGFR CKD-EPI 8.2 (>60)
[2023-07-06] MEDS: Heparin 5000 UNITS/ML 1 mL VIAL SUBCUT SCH ×3 (06:08→21:52)
[2023-07-06 06:23] LABS: PCO2 Arterial 47 mmHg (35-45); PO2 Arterial 79 mmHg (80-100)
[2023-07-06] MEDS ORDERED: fentaNYL Patch Check Q Shift NOTE FOLLOW UP SCH (07:00)
[2023-07-06] MEDS ORDERED: NS 0.9% 1000 ml BAG 100 ML IV PRN ×2 (07:36→07:40)
[2023-07-06] MEDS ORDERED: NS 0.9% 1000 ml BAG 200 ML IV PRN ×2 (07:36→07:40)
[2023-07-06] MEDS ORDERED: Albumin Human 25% 25 GM/100 ML BTL IV PRN (07:40)
[2023-07-06] MEDS ORDERED: Ferric Gluconate IV 250 MG in NS 0.9% 100 ml BAG 100 ML IVPB SCH (08:00)
[2023-07-06] MEDS ORDERED: Lorazepam PYXIS KEY PRN ×3 (10:28→20:15)
[2023-07-06] MEDS ORDERED: LORazepam 2 mg VIAL 1 ml IV PUSH ONE ×2 (10:28→12:09)
[2023-07-06] MEDS ORDERED: Vancomycin Trough Check NOTE FOLLOW UP ONE (10:30)
[2023-07-06] MEDS: Polyethylene Glycol 3350 17 GM PACKET PO SCH (11:05)
[2023-07-06] MEDS: Heparin 1,000 UNIT/ML 10 ml (10,000 UNITS) CATHLAB/DIALYSIS DIALYSIS PRN ×4 (11:05→15:20)
[2023-07-06] MEDS ORDERED: Vancomycin - DIALYSIS DOSING 1 EA NOTE FOLLOW UP SCH (14:00)
[2023-07-06 14:58] LABS: Hepatitis B Surface Antigen Nonreactive (Nonreactive)
[2023-07-06] MEDS ORDERED: Vancomycin 1000 MG in NS 0.9% 250 ML IVPB ONE (15:00)
[2023-07-06 15:16] LABS: Hepatitis B Surface Ab Not Immune (Immune)
[2023-07-06] MEDS: Ferric Gluconate IV 250 MG in NS 0.9% 250 ml 200 ML IVPB SCH (16:45)
[2023-07-06] MEDS: Pantoprazole VIAL 40 MG VIAL IV SCH (18:39)
[2023-07-06] MEDS ORDERED: LORazepam 2 mg VIAL 1 ml IV PUSH PRN (20:15)
[2023-07-06] MEDS: Senna TAB 8.6 mg TAB PO SCH (21:55)
[2023-07-07] MEDS: ZOSYN 3.375 GM Q12H per EXTENDED INFUSION IV SCH ×2 (00:39→15:15)
[2023-07-07] MEDS: Acetaminophen IV 1 GM/100ML 1,000 MG/100 ML BAG IV PRN (05:05)
[2023-07-07] MEDS ORDERED: HYDROmorphone 0.5 MG/0.5 ML SYRINGE IV SLOW PU ONE (05:19)
[2023-07-07] MEDS: Heparin 5000 UNITS/ML 1 mL VIAL SUBCUT SCH ×3 (06:06→22:09)
[2023-07-07] MEDS: Polyethylene Glycol 3350 17 GM PACKET PO SCH (07:38)
[2023-07-07] MEDS: Ferric Gluconate IV 250 MG in NS 0.9% 250 ml 200 ML IVPB SCH (07:38)
[2023-07-07 08:26] LABS: ABS Basophils 0.1 10^3/uL (0.0-0.1); ABS Lymphocytes 1.4 10^3/uL (1.0-4.8); ABS Monocytes 0.6 10^3/uL (0.0-0.9); ABS Neutrophils 4.4 10^3/uL (1.5-7.6); ABS Nucleated RBC 0.01 10^3/ul; Eosinophil % 0.5 %; Hematocrit 23.9 % (35-45); Hemoglobin 7.6 g/dL (11.5-14.3); Lymphocyte % 21.9 %; Mean Corpuscular Hemoglobin 28.9 pg (27-33); Mean Corpuscular Volume 90.4 fL (80-97); Nucleated Red Blood Cells % 0.1 /100 WBC (0.0-0.4); Platelet Count 416 10^3/uL (150-450); Red Blood Count 2.64 10^6/uL (3.63-4.92); White Blood Count 6.6 10^3/uL (3.8-11.8)
[2023-07-07 08:40] LABS: Magnesium 1.8 mg/dL (1.9-2.7); Potassium 3.9 mmol/L (3.5-5.0); eGFR CKD-EPI 14.5 (>60)
[2023-07-07] MEDS ORDERED: Lorazepam PYXIS KEY PRN (11:43)
[2023-07-07] MEDS ORDERED: LORazepam 2 mg VIAL 1 ml IV PUSH ONE (11:44)
[2023-07-07] MEDS ORDERED: cefTRIAXone 1 gm/50 mL D5W 1 GM/50 ML BAG IV SCH (18:00)
[2023-07-07] MEDS: cefTRIAXone 1 gm/50 mL D5W 1 GM/50 ML BAG IV SCH (20:33)
[2023-07-07] MEDS: Pantoprazole VIAL 40 MG VIAL IV SCH (20:33)
[2023-07-07] MEDS: Senna TAB 8.6 mg TAB PO SCH (20:33)
[2023-07-08] MEDS: Acetaminophen IV 1 GM/100ML 1,000 MG/100 ML BAG IV PRN ×2 (00:54→12:40)
[2023-07-08] MEDS: Heparin 5000 UNITS/ML 1 mL VIAL SUBCUT SCH ×3 (05:32→21:00)
[2023-07-08] MEDS ORDERED: Vancomycin Trough Check NOTE FOLLOW UP ONE (06:00)
[2023-07-08] MEDS: Pantoprazole VIAL 40 MG VIAL IV SCH ×2 (07:57→20:59)
[2023-07-08] MEDS: Heparin 1,000 UNIT/ML 10 ml (10,000 UNITS) CATHLAB/DIALYSIS DIALYSIS PRN ×4 (08:15→12:28)
[2023-07-08] MEDS: Polyethylene Glycol 3350 17 GM PACKET PO SCH (12:39)
[2023-07-08] MEDS: Ferric Gluconate IV 250 MG in NS 0.9% 250 ml 200 ML IVPB SCH (12:48)
[2023-07-08] MEDS ORDERED: Vancomycin 500 MG in NS 0.9% 250 ML IVPB ONE (16:00)
[2023-07-08] MEDS: Senna TAB 8.6 mg TAB PO SCH (20:58)
[2023-07-08] MEDS: cefTRIAXone 1 gm/50 mL D5W 1 GM/50 ML BAG IV SCH (20:59)
[2023-07-09] MEDS: Heparin 5000 UNITS/ML 1 mL VIAL SUBCUT SCH ×3 (05:03→20:34)
[2023-07-09 06:51] LABS: Hemoglobin 8.4 g/dL (11.5-14.3); Mean Corpuscular Hemoglobin 28.6 pg (27-33); Mean Corpuscular Hgb Conc 32.2 g/dL (31-36); Mean Corpuscular Volume 88.8 fL (80-97); Mean Platelet Volume 7.2 fL (7.5-11.2); Platelet Count 431 10^3/uL (150-450); Red Blood Count 2.93 10^6/uL (3.63-4.92); Red Cell Distribution Width 18.9 % (12-17); White Blood Count 9.4 10^3/uL (3.8-11.8)
[2023-07-09 07:28] LABS: Calcium 7.9 mg/dL (8.6-10.3); Creatinine, Serum 2.61 mg/dL (0.51-0.95); Magnesium 1.8 mg/dL (1.9-2.7); Potassium 3.3 mmol/L (3.5-5.0); eGFR CKD-EPI 17.1 (>60)
[2023-07-09] MEDS ORDERED: Magnesium Sulfate 2 gm BAG 2 GM/50 ML BAG IVPB ONE (07:38)
[2023-07-09 08:21] LABS: Anisocytosis 1+; Polychromasia 1+
[2023-07-09 08:22] LABS: ABS Basophils 0.1 10^3/uL (0.0-0.1); ABS Eosinophils 0.2 10^3/uL (0.0-0.5); ABS Lymphocytes 1.9 10^3/uL (1.0-4.8); ABS Monocytes 0.8 10^3/uL (0.0-0.9); ABS Neutrophils 6.4 10^3/uL (1.5-7.6); ABS Nucleated RBC 0.01 10^3/ul; Eosinophil % 1.6 %; Lymphocyte % 20.6 %; Nucleated Red Blood Cells % 0.1 /100 WBC (0.0-0.4)
[2023-07-09] MEDS: Polyethylene Glycol 3350 17 GM PACKET PO SCH (10:25)
[2023-07-09] MEDS: Acetaminophen IV 1 GM/100ML 1,000 MG/100 ML BAG IV PRN ×2 (20:27→21:03)
[2023-07-09] MEDS: Pantoprazole VIAL 40 MG VIAL IV SCH (20:30)
[2023-07-09] MEDS: Senna TAB 8.6 mg TAB PO SCH (20:31)
[2023-07-09] MEDS: cefTRIAXone 1 gm/50 mL D5W 1 GM/50 ML BAG IV SCH (21:21)
[2023-07-10] MEDS ORDERED: Vancomycin Random Level NOTE FOLLOW UP ONE (06:00)
[2023-07-10] MEDS: Acetaminophen IV 1 GM/100ML 1,000 MG/100 ML BAG IV PRN ×2 (06:09→15:40)
[2023-07-10] MEDS: Heparin 5000 UNITS/ML 1 mL VIAL SUBCUT SCH ×3 (06:11→21:20)
[2023-07-10 06:43] LABS: ABS Eosinophils 0.2 10^3/uL (0.0-0.5); ABS Lymphocytes 1.8 10^3/uL (1.0-4.8); ABS Monocytes 0.7 10^3/uL (0.0-0.9); ABS Neutrophils 5.8 10^3/uL (1.5-7.6); ABS Nucleated RBC 0.02 10^3/ul; Eosinophil % 1.9 %; Hematocrit 27.6 % (35-45); Hemoglobin 8.5 g/dL (11.5-14.3); Lymphocyte % 21.5 %; Mean Corpuscular Hemoglobin 28.2 pg (27-33); Mean Corpuscular Hgb Conc 30.8 g/dL (31-36); Mean Corpuscular Volume 91.6 fL (80-97); Mean Platelet Volume 6.9 fL (7.5-11.2); Nucleated Red Blood Cells % 0.2 /100 WBC (0.0-0.4); Platelet Count 414 10^3/uL (150-450); Red Blood Count 3.01 10^6/uL (3.63-4.92); Red Cell Distribution Width 19.1 % (12-17); White Blood Count 8.6 10^3/uL (3.8-11.8)
[2023-07-10 06:59] LABS: Vancomycin Random 14.1 mcg/mL
[2023-07-10 07:01] LABS: Calcium 7.9 mg/dL (8.6-10.3); Creatinine, Serum 3.25 mg/dL (0.51-0.95); Magnesium 2.5 mg/dL (1.9-2.7); Potassium 3.1 mmol/L (3.5-5.0); eGFR CKD-EPI 13.2 (>60)
[2023-07-10] MEDS: Polyethylene Glycol 3350 17 GM PACKET PO SCH (08:09)
[2023-07-10] MEDS: Heparin 1,000 UNIT/ML 10 ml (10,000 UNITS) CATHLAB/DIALYSIS DIALYSIS PRN ×4 (14:00→18:15)
[2023-07-10] MEDS ORDERED: HYDROmorphone 1 MG/1 ML SYRINGE IV SLOW PU ONE (16:07)
[2023-07-10] MEDS ORDERED: Vancomycin 500 MG in NS 0.9% 250 ML IVPB ONE (18:00)
[2023-07-10] MEDS: Pantoprazole VIAL 40 MG VIAL IV SCH (21:20)
[2023-07-10] MEDS: Senna TAB 8.6 mg TAB PO SCH (21:20)
[2023-07-10] MEDS: cefTRIAXone 1 gm/50 mL D5W 1 GM/50 ML BAG IV SCH (21:29)
[2023-07-10] MEDS ORDERED: HYDROmorphone 0.5 MG/0.5 ML SYRINGE IV ONE (23:03)
[2023-07-10] MEDS ORDERED: Bumetanide IV 0.25 MG/ML 4 ml VIAL (1 mg) IV SLOW PU ONE (23:45)
[2023-07-11] MEDS: Heparin 5000 UNITS/ML 1 mL VIAL SUBCUT SCH ×3 (06:16→21:02)
[2023-07-11 06:30] LABS: Hematocrit 27.9 % (35-45); Hemoglobin 8.8 g/dL (11.5-14.3); Mean Corpuscular Hemoglobin 28.7 pg (27-33); Mean Corpuscular Hgb Conc 31.6 g/dL (31-36); Mean Corpuscular Volume 90.6 fL (80-97); Mean Platelet Volume 7.5 fL (7.5-11.2); Platelet Count 402 10^3/uL (150-450); Red Blood Count 3.08 10^6/uL (3.63-4.92); White Blood Count 19.1 10^3/uL (3.8-11.8)
[2023-07-11 06:41] LABS: Creatinine, Serum 2.29 mg/dL (0.51-0.95); Phosphorus 1.8 mg/dL (2.5-5.0); Potassium 3.7 mmol/L (3.5-5.0)
[2023-07-11 07:03] LABS: ABS Basophils 0.2 10^3/uL (0.0-0.1); ABS Lymphocytes 1.2 10^3/uL (1.0-4.8); ABS Monocytes 0.1 10^3/uL (0.0-0.9); ABS Neutrophils 17.6 10^3/uL (1.5-7.6); ABS Nucleated RBC 0.02 10^3/ul; Lymphocyte % 6.3 %; Nucleated Red Blood Cells % 0.1 /100 WBC (0.0-0.4)
[2023-07-11] MEDS: Polyethylene Glycol 3350 17 GM PACKET PO SCH (09:54)
[2023-07-11] MEDS: Acetaminophen IV 1 GM/100ML 1,000 MG/100 ML BAG IV PRN (12:21)
[2023-07-11] MEDS: Senna TAB 8.6 mg TAB PO SCH (21:01)
[2023-07-11] MEDS: Pantoprazole VIAL 40 MG VIAL IV SCH (21:02)
[2023-07-11] MEDS: cefTRIAXone 1 gm/50 mL D5W 1 GM/50 ML BAG IV SCH (21:10)
[2023-07-12] MEDS: Heparin 5000 UNITS/ML 1 mL VIAL SUBCUT SCH ×3 (05:58→21:15)
[2023-07-12] MEDS: Acetaminophen IV 1 GM/100ML 1,000 MG/100 ML BAG IV PRN (06:08)
[2023-07-12 07:03] LABS: ABS Basophils 0.1 10^3/uL (0.0-0.1); ABS Lymphocytes 1.6 10^3/uL (1.0-4.8); ABS Monocytes 0.9 10^3/uL (0.0-0.9); ABS Neutrophils 15.2 10^3/uL (1.5-7.6); Eosinophil % 0.1 %; Hematocrit 26.1 % (35-45); Hemoglobin 8.1 g/dL (11.5-14.3); Lymphocyte % 8.8 %; Mean Corpuscular Hgb Conc 30.8 g/dL (31-36); Mean Corpuscular Volume 90.7 fL (80-97); Mean Platelet Volume 7.4 fL (7.5-11.2); Platelet Count 374 10^3/uL (150-450); Red Blood Count 2.88 10^6/uL (3.63-4.92); Red Cell Distribution Width 19.6 % (12-17); White Blood Count 17.8 10^3/uL (3.8-11.8)
[2023-07-12 07:13] LABS: Calcium 8.3 mg/dL (8.6-10.3); Creatinine, Serum 3.13 mg/dL (0.51-0.95); Magnesium 2.2 mg/dL (1.9-2.7); Potassium 3.5 mmol/L (3.5-5.0); eGFR CKD-EPI 13.8 (>60)
[2023-07-12] MEDS: Polyethylene Glycol 3350 17 GM PACKET PO SCH ×3 (08:31→21:15)
[2023-07-12] MEDS ORDERED: DULoxetine DR 30 mg CAP PO ONE (09:31)
[2023-07-12] MEDS: Senna TAB 8.6 mg TAB PO SCH ×2 (11:45→21:15)
[2023-07-12] MEDS: Magnesium Hydroxide LIQ 30 ML UDC PO SCH (21:15)
[2023-07-12] MEDS: Pantoprazole VIAL 40 MG VIAL IV SCH (21:16)
[2023-07-12] MEDS: cefTRIAXone 1 gm/50 mL D5W 1 GM/50 ML BAG IV SCH (21:16)
[2023-07-13] MEDS: Heparin 5000 UNITS/ML 1 mL VIAL SUBCUT SCH ×3 (05:33→21:23)
[2023-07-13] MEDS ORDERED: Vancomycin Random Level NOTE FOLLOW UP ONE (06:00)
[2023-07-13 07:12] LABS: Creatinine, Serum 3.83 mg/dL (0.51-0.95); Magnesium 2.4 mg/dL (1.9-2.7); Phosphorus 2.1 mg/dL (2.5-5.0); Potassium 3.8 mmol/L (3.5-5.0); eGFR CKD-EPI 10.8 (>60)
[2023-07-13 07:13] LABS: ABS Monocytes 1.1 10^3/uL (0.0-0.9); ABS Neutrophils 14.9 10^3/uL (1.5-7.6); ABS Nucleated RBC 0.01 10^3/ul; Eosinophil % 0.1 %; Hematocrit 26.7 % (35-45); Hemoglobin 8.4 g/dL (11.5-14.3); Lymphocyte % 6.1 %; Mean Corpuscular Hemoglobin 28.5 pg (27-33); Mean Corpuscular Hgb Conc 31.6 g/dL (31-36); Mean Corpuscular Volume 90.4 fL (80-97); Mean Platelet Volume 7.5 fL (7.5-11.2); Platelet Count 360 10^3/uL (150-450); Red Blood Count 2.96 10^6/uL (3.63-4.92); Red Cell Distribution Width 20.2 % (12-17); White Blood Count 17.1 10^3/uL (3.8-11.8)
[2023-07-13 07:38] LABS: Vancomycin Random 13.1 mcg/mL
[2023-07-13] MEDS: Senna TAB 8.6 mg TAB PO SCH ×2 (09:43→21:23)
[2023-07-13] MEDS: Polyethylene Glycol 3350 17 GM PACKET PO SCH ×2 (09:43→21:23)
[2023-07-13] MEDS: Magnesium Hydroxide LIQ 30 ML UDC PO SCH ×2 (09:44→21:23)
[2023-07-13] MEDS: DULoxetine DR 30 mg CAP PO SCH (09:45)
[2023-07-13] MEDS: Heparin 1,000 UNIT/ML 10 ml (10,000 UNITS) CATHLAB/DIALYSIS DIALYSIS PRN ×4 (11:15→15:00)
[2023-07-13] MEDS ORDERED: Vancomycin 500 MG in NS 0.9% 250 ML IVPB ONE (15:00)
[2023-07-13] MEDS: Amoxicillin/Clavul 500/125 TAB (Augmentin 500 mg tab) PO SCH (15:35)
[2023-07-13] MEDS: Lactulose 30 ml UDC PO SCH ×2 (17:59→21:23)
[2023-07-14] MEDS: Heparin 5000 UNITS/ML 1 mL VIAL SUBCUT SCH ×3 (04:50→22:09)
[2023-07-14 06:03] LABS: Calcium 8.4 mg/dL (8.6-10.3); Creatinine, Serum 2.33 mg/dL (0.51-0.95); Magnesium 2.1 mg/dL (1.9-2.7); Potassium 3.8 mmol/L (3.5-5.0); eGFR CKD-EPI 19.6 (>60)
[2023-07-14] MEDS: Pantoprazole VIAL 40 MG VIAL IV SCH (07:25)
[2023-07-14] MEDS ORDERED: Magnesium Hydroxide LIQ 30 ML UDC PO PRN (09:05)
[2023-07-14] MEDS: Magnesium Hydroxide LIQ 30 ML UDC PO SCH (09:07)
[2023-07-14] MEDS: Lactulose 30 ml UDC PO SCH (09:07)
[2023-07-14] MEDS: Polyethylene Glycol 3350 17 GM PACKET PO SCH ×2 (09:47→21:58)
[2023-07-14] MEDS: Senna TAB 8.6 mg TAB PO SCH ×2 (09:48→22:04)
[2023-07-14] MEDS: Amoxicillin/Clavul 500/125 TAB (Augmentin 500 mg tab) PO SCH (09:48)
[2023-07-14] MEDS: DULoxetine DR 30 mg CAP PO SCH (09:48)
[2023-07-14] MEDS ORDERED: Collagenase 250 units/gm OINT 1 tube TOPICAL SCH (17:30)
[2023-07-14] MEDS: Collagenase 250 units/gm OINT 1 tube TOPICAL SCH (18:01)
[2023-07-15] MEDS ORDERED: Vancomycin Trough Check NOTE FOLLOW UP ONE (06:00)
[2023-07-15] MEDS: Heparin 5000 UNITS/ML 1 mL VIAL SUBCUT SCH ×3 (06:00→20:09)
[2023-07-15 06:52] LABS: Calcium 8.2 mg/dL (8.6-10.3); Creatinine, Serum 3.22 mg/dL (0.51-0.95); Magnesium 2.2 mg/dL (1.9-2.7); Potassium 3.7 mmol/L (3.5-5.0); eGFR CKD-EPI 13.3 (>60)
[2023-07-15] MEDS: Senna TAB 8.6 mg TAB PO SCH ×2 (09:16→20:10)
[2023-07-15] MEDS: Collagenase 250 units/gm OINT 1 tube TOPICAL SCH (09:17)
[2023-07-15] MEDS: Amoxicillin/Clavul 500/125 TAB (Augmentin 500 mg tab) PO SCH (09:17)
[2023-07-15] MEDS: Polyethylene Glycol 3350 17 GM PACKET PO SCH ×2 (09:17→20:09)
[2023-07-15] MEDS: DULoxetine DR 30 mg CAP PO SCH (09:17)
[2023-07-15] MEDS: Heparin 1,000 UNIT/ML 10 ml (10,000 UNITS) CATHLAB/DIALYSIS DIALYSIS PRN ×3 (13:32→17:00)
[2023-07-15] MEDS: Albumin Human 25% 25 GM/100 ML BTL IV PRN ×2 (13:42→15:40)
[2023-07-15] MEDS ORDERED: Alteplase (CATHFLO) 2 MG VIAL IV ONE (14:52)
[2023-07-16] MEDS: Heparin 5000 UNITS/ML 1 mL VIAL SUBCUT SCH ×3 (05:24→21:29)
[2023-07-16 06:15] LABS: Calcium 8.4 mg/dL (8.6-10.3); Creatinine, Serum 2.16 mg/dL (0.51-0.95); Magnesium 1.9 mg/dL (1.9-2.7); Potassium 3.6 mmol/L (3.5-5.0); eGFR CKD-EPI 21.5 (>60)
[2023-07-16] MEDS: Polyethylene Glycol 3350 17 GM PACKET PO SCH ×2 (10:00→21:38)
[2023-07-16] MEDS: Amoxicillin/Clavul 500/125 TAB (Augmentin 500 mg tab) PO SCH (10:04)
[2023-07-16] MEDS: DULoxetine DR 30 mg CAP PO SCH (10:04)
[2023-07-16] MEDS: Senna TAB 8.6 mg TAB PO SCH ×2 (10:04→21:34)
[2023-07-16] MEDS: Collagenase 250 units/gm OINT 1 tube TOPICAL SCH (10:15)
[2023-07-16] MEDS: Heparin 1,000 UNIT/ML 10 ml (10,000 UNITS) CATHLAB/DIALYSIS DIALYSIS PRN (13:33)
[2023-07-16 22:12] LABS: PCO2 Arterial 47 mmHg (35-45); PO2 Arterial 71 mmHg (80-100)
[2023-07-17] MEDS ORDERED: Lorazepam PYXIS KEY PRN ×3 (02:24→18:03)
[2023-07-17] MEDS ORDERED: LORazepam 2 mg VIAL 1 ml IM ONE ×2 (02:24→17:10)
[2023-07-17] MEDS: Heparin 5000 UNITS/ML 1 mL VIAL SUBCUT SCH ×3 (05:08→21:50)
[2023-07-17 08:34] LABS: Hematocrit 24.9 % (35-45); Hemoglobin 7.7 g/dL (11.5-14.3); Mean Corpuscular Hemoglobin 27.8 pg (27-33); Mean Corpuscular Hgb Conc 30.7 g/dL (31-36); Mean Corpuscular Volume 90.5 fL (80-97); Platelet Count 308 10^3/uL (150-450); Red Blood Count 2.75 10^6/uL (3.63-4.92); Red Cell Distribution Width 20.3 % (12-17); White Blood Count 15.2 10^3/uL (3.8-11.8)
[2023-07-17] MEDS ORDERED: fentaNYL 100 mcg/2 ml 50 MCG/ML VIAL IV SLOW PU PRN ×3 (09:07→19:10)
[2023-07-17] MEDS: Heparin 1,000 UNIT/ML 10 ml (10,000 UNITS) CATHLAB/DIALYSIS DIALYSIS PRN ×4 (09:15→13:00)
[2023-07-17] MEDS ORDERED: fentaNYL 100 mcg/2 ml 50 MCG/ML VIAL IV PRN (09:45)
[2023-07-17] MEDS ORDERED: HYDROmorphone 1 MG/1 ML SYRINGE IV SLOW PU ONE (10:48)
[2023-07-17] MEDS: Amoxicillin/Clavul 500/125 TAB (Augmentin 500 mg tab) PO SCH (14:37)
[2023-07-17] MEDS ORDERED: Piperacillin/Tazobac 3.375 BAG 3.375 GM/100 ML BAG IV ONE (14:39)
[2023-07-17] MEDS ORDERED: Zosyn per Pharmacy NOTE FOLLOW UP SCH (15:00)
[2023-07-17] MEDS: Collagenase 250 units/gm OINT 1 tube TOPICAL SCH (15:25)
[2023-07-17] MEDS: Polyethylene Glycol 3350 17 GM PACKET PO SCH ×2 (15:25→20:16)
[2023-07-17] MEDS: Senna TAB 8.6 mg TAB PO SCH ×2 (15:26→20:16)
[2023-07-17] MEDS: DULoxetine DR 30 mg CAP PO SCH (15:26)
[2023-07-17] MEDS ORDERED: Amoxicillin/Clavul 500/125 TAB (Augmentin 500 mg tab) PO SCH (17:00)
[2023-07-17] MEDS ORDERED: NS 0.9% 500 ml BAG 500 ML IV ONE (17:58)
[2023-07-17] MEDS ORDERED: Lactated Ringers 1000 ml BAG 1,000 ML IV ONE (17:59)
[2023-07-17] MEDS ORDERED: NS 0.9% 1000 ml BAG 1,000 ML IV SCH (19:15)
[2023-07-17] MEDS: ZOSYN 3.375 GM Q12H per EXTENDED INFUSION IV SCH (21:41)
[2023-07-17] MEDS: fentaNYL 100 mcg/2 ml 50 MCG/ML VIAL IV SLOW PU PRN (23:37)
[2023-07-17] MEDS: LORazepam 2 mg VIAL 1 ml IV PUSH PRN (23:37)
[2023-07-18] MEDS: fentaNYL 100 mcg/2 ml 50 MCG/ML VIAL IV SLOW PU PRN ×3 (02:07→14:53)
[2023-07-18] MEDS: Heparin 5000 UNITS/ML 1 mL VIAL SUBCUT SCH ×4 (05:42→22:39)
[2023-07-18] MEDS: Acetaminophen IV 1 GM/100ML 1,000 MG/100 ML BAG IV PRN (05:42)
[2023-07-18] MEDS: LORazepam 2 mg VIAL 1 ml IV PUSH PRN ×3 (08:39→22:30)
[2023-07-18 09:10] LABS: Hematocrit 26.6 % (35-45); Hemoglobin 8.1 g/dL (11.5-14.3); Mean Corpuscular Hemoglobin 27.5 pg (27-33); Mean Corpuscular Hgb Conc 30.5 g/dL (31-36); Mean Platelet Volume 7.6 fL (7.5-11.2); Platelet Count 326 10^3/uL (150-450); Red Blood Count 2.95 10^6/uL (3.63-4.92); Red Cell Distribution Width 20.5 % (12-17); White Blood Count 15.7 10^3/uL (3.8-11.8)
[2023-07-18 09:17] LABS: INR 1.24 (0.83-1.13)
[2023-07-18 09:28] LABS: Albumin 2.6 g/dL (3.2-5.2); Calcium 8.2 mg/dL (8.6-10.3); Creatinine, Serum 2.53 mg/dL (0.51-0.95); Globulin 2.7 g/dL (2-4); Potassium 3.8 mmol/L (3.5-5.0); Total Bilirubin 0.6 mg/dL (0.2-1.0); Total Protein 5.3 g/dL (6.4-8.9); eGFR CKD-EPI 17.8 (>60)
[2023-07-18 09:41] LABS: RBC Morphology Normal (Normal)
[2023-07-18 09:42] LABS: ABS Basophils 0.1 10^3/uL (0.0-0.1); ABS Lymphocytes 1.2 10^3/uL (1.0-4.8); ABS Neutrophils 13.4 10^3/uL (1.5-7.6); ABS Nucleated RBC 0.01 10^3/ul; Eosinophil % 0.3 %; Lymphocyte % 7.5 %; Nucleated Red Blood Cells % 0.1 /100 WBC (0.0-0.4)
[2023-07-18] MEDS: Polyethylene Glycol 3350 17 GM PACKET PO SCH ×2 (10:18→22:36)
[2023-07-18] MEDS: Collagenase 250 units/gm OINT 1 tube TOPICAL SCH (10:18)
[2023-07-18] MEDS: Senna TAB 8.6 mg TAB PO SCH ×2 (10:19→22:36)
[2023-07-18] MEDS: DULoxetine DR 30 mg CAP PO SCH (10:19)
[2023-07-18] MEDS: NS 0.9% 1000 ml BAG 1,000 ML IV SCH (10:27)
[2023-07-18] MEDS: ZOSYN 3.375 GM Q12H per EXTENDED INFUSION IV SCH ×2 (10:27→22:31)
[2023-07-18] MEDS: HYDROmorphone 0.5 MG/0.5 ML SYRINGE IV SLOW PU PRN (19:56)
[2023-07-19] MEDS: fentaNYL 100 mcg/2 ml 50 MCG/ML VIAL IV SLOW PU PRN ×4 (00:09→12:29)
[2023-07-19] MEDS: HYDROmorphone 0.5 MG/0.5 ML SYRINGE IV SLOW PU PRN ×3 (01:02→21:21)
[2023-07-19] MEDS: NS 0.9% 1000 ml BAG 1,000 ML IV SCH (03:45)
[2023-07-19] MEDS: Heparin 5000 UNITS/ML 1 mL VIAL SUBCUT SCH ×3 (06:21→21:48)
[2023-07-19 06:56] LABS: Hematocrit 25.7 % (35-45); Hemoglobin 7.9 g/dL (11.5-14.3); Mean Corpuscular Hemoglobin 28.2 pg (27-33); Mean Corpuscular Hgb Conc 30.8 g/dL (31-36); Mean Corpuscular Volume 91.6 fL (80-97); Mean Platelet Volume 7.6 fL (7.5-11.2); Platelet Count 330 10^3/uL (150-450); Red Cell Distribution Width 20.5 % (12-17); White Blood Count 13.2 10^3/uL (3.8-11.8)
[2023-07-19 07:14] LABS: Calcium 8.2 mg/dL (8.6-10.3); Creatinine, Serum 3.37 mg/dL (0.51-0.95); Magnesium 2.3 mg/dL (1.9-2.7); Potassium 4.2 mmol/L (3.5-5.0); eGFR CKD-EPI 12.6 (>60)
[2023-07-19] MEDS: Polyethylene Glycol 3350 17 GM PACKET PO SCH ×2 (09:05→19:21)
[2023-07-19] MEDS: DULoxetine DR 30 mg CAP PO SCH (09:05)
[2023-07-19] MEDS: Senna TAB 8.6 mg TAB PO SCH ×2 (09:06→19:21)
[2023-07-19] MEDS: ZOSYN 3.375 GM Q12H per EXTENDED INFUSION IV SCH ×2 (09:17→21:22)
[2023-07-19] MEDS ORDERED: Lactated Ringers 1000 ml BAG 1,000 ML IV ONE (09:22)
[2023-07-19] MEDS ORDERED: HYDROmorphone 0.5 MG/0.5 ML SYRINGE IV SLOW PU PRN (09:24)
[2023-07-19] MEDS: Collagenase 250 units/gm OINT 1 tube TOPICAL SCH (10:22)
[2023-07-19] MEDS: LORazepam 2 mg VIAL 1 ml IV PUSH PRN (21:48)
[2023-07-20] MEDS: HYDROmorphone 0.5 MG/0.5 ML SYRINGE IV SLOW PU PRN ×5 (02:57→23:08)
[2023-07-20] MEDS: LORazepam 2 mg VIAL 1 ml IV PUSH PRN ×2 (03:48→19:40)
[2023-07-20] MEDS: Heparin 5000 UNITS/ML 1 mL VIAL SUBCUT SCH ×2 (04:08→14:36)
[2023-07-20 06:01] LABS: Hematocrit 25.5 % (35-45); Hemoglobin 7.8 g/dL (11.5-14.3); Mean Corpuscular Hgb Conc 30.5 g/dL (31-36); Mean Corpuscular Volume 91.8 fL (80-97); Mean Platelet Volume 7.5 fL (7.5-11.2); Platelet Count 312 10^3/uL (150-450); Red Blood Count 2.78 10^6/uL (3.63-4.92); Red Cell Distribution Width 20.6 % (12-17); White Blood Count 11.3 10^3/uL (3.8-11.8)
[2023-07-20 06:17] LABS: Calcium 8.9 mg/dL (8.6-10.3); Creatinine, Serum 4.33 mg/dL (0.51-0.95); Magnesium 2.4 mg/dL (1.9-2.7); Potassium 4.1 mmol/L (3.5-5.0); eGFR CKD-EPI 9.3 (>60)
[2023-07-20] MEDS: Heparin 1,000 UNIT/ML 10 ml (10,000 UNITS) CATHLAB/DIALYSIS DIALYSIS PRN ×4 (08:15→12:00)
[2023-07-20] MEDS: Acetaminophen IV 1 GM/100ML 1,000 MG/100 ML BAG IV PRN ×2 (09:00→23:37)
[2023-07-20 09:31] LABS: Anisocytosis 2+
[2023-07-20 09:32] LABS: ABS Eosinophils 0.1 10^3/uL (0.0-0.5); ABS Lymphocytes 1.3 10^3/uL (1.0-4.8); ABS Neutrophils 8.9 10^3/uL (1.5-7.6); ABS Nucleated RBC 0.01 10^3/ul; Eosinophil % 0.8 %; Lymphocyte % 11.7 %; Nucleated Red Blood Cells % 0.1 /100 WBC (0.0-0.4)
[2023-07-20] MEDS: Albumin Human 25% 25 GM/100 ML BTL IV PRN (09:46)
[2023-07-20] MEDS ORDERED: fentaNYL 100 mcg/2 ml 50 MCG/ML VIAL ONE (12:32)
[2023-07-20] MEDS: Polyethylene Glycol 3350 17 GM PACKET PO SCH ×2 (14:37→19:53)
[2023-07-20] MEDS: DULoxetine DR 30 mg CAP PO SCH (14:37)
[2023-07-20] MEDS: Senna TAB 8.6 mg TAB PO SCH ×2 (14:38→19:53)
[2023-07-20] MEDS: ZOSYN 3.375 GM Q12H per EXTENDED INFUSION IV SCH ×2 (14:38→23:02)
[2023-07-20] MEDS: Collagenase 250 units/gm OINT 1 tube TOPICAL SCH (14:46)
[2023-07-20 14:56] LABS: Calcium 8.6 mg/dL (8.6-10.3); Magnesium 1.8 mg/dL (1.9-2.7); Potassium 3.3 mmol/L (3.5-5.0)
[2023-07-20 15:02] LABS: Creatinine, Serum 1.86 mg/dL (0.51-0.95); Phosphorus 1.6 mg/dL (2.5-5.0); eGFR CKD-EPI 25.7 (>60)
[2023-07-20] MEDS ORDERED: Potassium Chlor 10 meq TAB PO ONE (16:28)
[2023-07-20] MEDS ORDERED: Potassium Chlor 20 meq TAB.ER PO ONE (16:28)
[2023-07-20] MEDS: Albumin Human 5% 12.5 GM/250 ML BTL IV SCH ×2 (18:12→19:43)
[2023-07-21] MEDS: Heparin 5000 UNITS/ML 1 mL VIAL SUBCUT SCH ×4 (01:23→21:58)
[2023-07-21] MEDS: HYDROmorphone 0.5 MG/0.5 ML SYRINGE IV SLOW PU PRN ×5 (02:34→21:31)
[2023-07-21 05:34] LABS: Hematocrit 23.5 % (35-45); Hemoglobin 7.3 g/dL (11.5-14.3); Mean Corpuscular Hemoglobin 27.7 pg (27-33); Mean Corpuscular Hgb Conc 30.9 g/dL (31-36); Mean Corpuscular Volume 89.8 fL (80-97); Mean Platelet Volume 7.8 fL (7.5-11.2); Platelet Count 276 10^3/uL (150-450); Red Blood Count 2.62 10^6/uL (3.63-4.92); Red Cell Distribution Width 20.5 % (12-17); White Blood Count 9.7 10^3/uL (3.8-11.8)
[2023-07-21] MEDS: LORazepam 2 mg VIAL 1 ml IV PUSH PRN ×2 (09:20→21:31)
[2023-07-21] MEDS: Senna TAB 8.6 mg TAB PO SCH ×2 (09:29→21:07)
[2023-07-21] MEDS: Polyethylene Glycol 3350 17 GM PACKET PO SCH ×2 (09:29→21:06)
[2023-07-21] MEDS: ZOSYN 3.375 GM Q12H per EXTENDED INFUSION IV SCH ×2 (09:37→21:03)
[2023-07-21] MEDS: fentaNYL 100 mcg/2 ml 50 MCG/ML VIAL IV SLOW PU PRN ×4 (11:16→18:59)
[2023-07-21] MEDS: DULoxetine DR 30 mg CAP PO SCH (11:23)
[2023-07-21 13:58] LABS: Calcium 8.9 mg/dL (8.6-10.3); Creatinine, Serum 3.08 mg/dL (0.51-0.95); Potassium 3.4 mmol/L (3.5-5.0)
[2023-07-21] MEDS: Collagenase 250 units/gm OINT 1 tube TOPICAL SCH (21:37)
[2023-07-22] MEDS: HYDROmorphone 0.5 MG/0.5 ML SYRINGE IV SLOW PU PRN ×3 (02:38→13:00)
[2023-07-22] MEDS: LORazepam 2 mg VIAL 1 ml IV PUSH PRN ×2 (03:35→14:54)
[2023-07-22] MEDS: Heparin 5000 UNITS/ML 1 mL VIAL SUBCUT SCH ×2 (05:41→14:36)
[2023-07-22] MEDS: Heparin 1,000 UNIT/ML 10 ml (10,000 UNITS) CATHLAB/DIALYSIS DIALYSIS PRN ×4 (08:35→12:15)
[2023-07-22] MEDS: fentaNYL 100 mcg/2 ml 50 MCG/ML VIAL IV SLOW PU PRN (08:54)
[2023-07-22] MEDS: Albumin Human 25% 25 GM/100 ML BTL IV PRN (11:40)
[2023-07-22 12:39] VITALS: BP 158/74
[2023-07-22] MEDS: ZOSYN 3.375 GM Q12H per EXTENDED INFUSION IV SCH (12:53)
[2023-07-22] MEDS: Polyethylene Glycol 3350 17 GM PACKET PO SCH (12:54)
[2023-07-22] MEDS: Senna TAB 8.6 mg TAB PO SCH (12:55)
[2023-07-22] MEDS: KCL 20 MEQ/100 ML IVPREMIX 20 MEQ/100 ML BAG IV SCH ×2 (13:14→17:00)
[2023-07-22] MEDS ORDERED: Ondansetron ODT 4 mg TAB 4 MG TAB SL PRN (14:10)
[2023-07-22] MEDS ORDERED: LORazepam 2 mg VIAL 1 ml IV PUSH PRN (14:10)
[2023-07-22] MEDS ORDERED: Morphine ORAL CONCENTRATE 5 MG/0.25 ML ORAL.SYRIN PO PRN (14:12)
[2023-07-22] MEDS: Collagenase 250 units/gm OINT 1 tube TOPICAL SCH (14:35)
[2023-07-22] MEDS ORDERED: Morphine ORAL CONCENTRATE 5 MG/0.25 ML ORAL.SYRIN PO SCH (15:00)
[2023-07-22] MEDS ORDERED: Morphine 2 MG/ML SYRINGE IV ONE (18:12)
[2023-07-22] MEDS: Morphine ORAL CONCENTRATE 5 MG/0.25 ML ORAL.SYRIN SL SCH ×2 (19:43→21:39)
[2023-07-22] MEDS: Morphine ORAL.SOLN 10 mg 2 mg/ml UDC 5 ml (10 mg) PO PRN (23:34)
[2023-07-22] MEDS: Morphine ORAL CONCENTRATE 5 MG/0.25 ML ORAL.SYRIN SL PRN (23:34)
[2023-07-23] MEDS: Morphine ORAL CONCENTRATE 5 MG/0.25 ML ORAL.SYRIN SL SCH ×6 (02:33→19:30)
[2023-07-23] MEDS ORDERED: Morphine 2 MG/ML SYRINGE IV ONE (03:23)
[2023-07-23] MEDS: Morphine ORAL CONCENTRATE 5 MG/0.25 ML ORAL.SYRIN SL PRN ×4 (05:09→13:39)
[2023-07-23] MEDS: Morphine ORAL.SOLN 10 mg 2 mg/ml UDC 5 ml (10 mg) PO PRN (10:24)
[2023-07-24] MEDS: Morphine ORAL CONCENTRATE 5 MG/0.25 ML ORAL.SYRIN SL SCH ×4 (00:13→11:57)
[2023-07-24] MEDS ORDERED: Atropine 1% (ORAL/SL) 15 ML BTL SL PRN (11:57)
== END 2023-07-24 12:09 | disposition expired | DRG 871 ==
LOC: ED 15:31 → SUATTDRO 19:04 → EDHOLD 19:04 → MED 20:17
PROVIDERS: ADMIT Internal Medicine; ATTEND Internal Medicine